=== PATIENT | female | born 1960 | race Caucasian/White ===

== ENCOUNTER 2016-02-21 15:34 | Emergency (ER) | payer OTHER ==
[2016-02-21 16:38] VITALS: RESP 20
--- NOTE | 2016-02-21 18:15 | ED ---
Female Urogenital HPI - General Chief complaint: Urogenital Stated complaint: Lower Abd Pain Source: patient, RN notes reviewed Mode of arrival: ambulatory Limitations: no limitations - History of Present Illness Initial comments: Patient is a 55-year-old female presenting to the emergency department with 2 days of vaginal discharge and burning with urination. Patient reports that she asked that the discharge is a yellow color and she also has had vaginal itching. Patient is concerned that she has a possible yeast infection or possibly sexually transmitted infection. Denies any recent antibiotic use. Patient warts that she has unprotected sex with however he has been unfaithful to her on her in the past. Patient reports that she also has some lower pelvic pain which she rates a 4 out of 10. Patient with the pain is intermittent will occasionally bother her. Patient reports she has a past medical history of hypertension and irritable bowel syndrome. She states that she has had diarrhea lately however she states that this is a chronic condition. Patient denies any recent fever, chills, shortness of breath, chest pain, back pain, nausea vomiting, numbness or tingling, dysuria or hematuria, constipation or diarrhea, headaches or visual changes, or any other current symptoms - Related Data Home Medications Medication Instructions Recorded Confirmed Propranolol LA [Inderal LA] 80 mg PO DAILY 08/03/15 02/21/16 Previous Rx's Medication Instructions Recorded Phenazopyridine HCl [Pyridium] 100 mg PO TID #6 tab 02/21/16 Sulfamethox-Tmp 800-160Mg [Bactrim 1 tab PO Q12HR #6 tab 02/21/16 DS 800-160 mg] Allergies Allergy/AdvReac Type Severity Reaction Status Date / Time No Known Allergies Allergy Verified 02/21/16 18:21 Review of Systems ROS Statement: Those systems with pertinent positive or pertinent negative responses have been documented in the HPI. ROS Other: All systems not noted in ROS Statement are negative. Past Medical History Additional Past Medical History / Comment(s): mitral valve prolapse History of Any Multi-Drug Resistant Organisms: None Reported Past Surgical History: No Surgical Hx Reported Past Psychological History: No Psychological Hx Reported Smoking Status: Never smoker Past Alcohol Use History: None Reported Past Drug Use History: None Reported General Exam - General Exam Comments Initial Comments: Patient is a well-appearing 55-year-old female. She does not appear to be in any acute distress. Limitations: no limitations General appearance: alert, in no apparent distress Head exam: Present: atraumatic, normocephalic, normal inspection Eye exam: Present: normal appearance, PERRL, EOMI. Absent: scleral icterus, conjunctival injection, periorbital swelling ENT exam: Present: normal exam, normal oropharynx, mucous membranes moist Neck exam: Present: normal inspection. Absent: tenderness, meningismus, lymphadenopathy Respiratory exam: Present: normal lung sounds bilaterally. Absent: respiratory distress, wheezes, rales, rhonchi, stridor Cardiovascular Exam: Present: regular rate, normal rhythm, normal heart sounds. Absent: systolic murmur, diastolic murmur, rubs, gallop, clicks GI/Abdominal exam: Present: soft, normal bowel sounds. Absent: distended, tenderness, guarding, rebound, rigid External exam: Present: normal external exam Speculum exam: Present: normal speculum exam. Absent: erythema, vaginal discharge, cervical discharge, vaginal bleeding By manual exam: Present: normal by manual exam. Absent: cervical motion tenderness, adnexal tenderness, adnexal mass, uterine enlargement Extremities exam: Present: normal inspection, full ROM, normal capillary refill. Absent: tenderness, pedal edema, joint swelling, calf tenderness Back exam: Present: normal inspection Neurological exam: Present: alert, oriented X3, CN II-XII intact Psychiatric exam: Present: normal affect, normal mood Skin exam: Present: warm, dry, intact, normal color. Absent: rash Course Vital Signs 02/21/16 16:37 Temperature 98 F Pulse Rate 65 Respiratory 20 Rate Blood Pressure 127/58 O2 Sat by Pulse 97 Oximetry Medical Decision Making - Medical Decision Making Patient's 55-year-old female presents emergency room with 2 days of dysuria, vaginal itching. Patient's urinalysis is positive for nitrates white blood cells and leukocyte esterase. Urine culture sent. Patient will be discharged with a diagnosis of urinary tract infection. Vaginal exam was negative for any discharge or signs of sexual transmitted infection. Patient will be placed on Bactrim DS as well as given a prescription for peridium for the next 2 days. Patient understands treatment plan will comply. Return parameters were discussed. I did advise patient she is follow-up with a [employer] IM[employer]OVEMENT ENGINEER for annual visits. Patient was also given a referral for a obgyn. - Lab Data Lab Results 02/21/16 Range/Units 18:14 Urine Color Light Yellow Urine Appearance Clear (Clear) Urine pH 5.0 (5.0-8.0) Ur Specific [place] 1.011 (1.001-1.035) Urine Protein Negative (Negative) Urine Glucose (UA) Negative (Negative) Urine Ketones Negative (Negative) Urine Blood Negative (Negative) Urine Nitrate Positive H (Negative) Urine Bilirubin Negative (Negative) Urine Urobilinogen <2.0 (<2.0) mg/dL Ur Leukocyte Esterase Moderate H (Negative) Urine RBC <1 (0-5) /hpf Urine WBC 6 H (0-5) /hpf Urine Bacteria Occasional H (None) /hpf Hyaline Casts 2 (0-2) /lpf Urine Mucus Rare H (None) /hpf Disposition Clinical Impression: Urinary tract infection Disposition: HOME SELF-CARE Condition: Good Instructions: Urinary Tract Infection in Women (ED) Additional Instructions: Patient instructed to rest, remain hydrated and the antibiotic prescription as well as take the analgesic. Patient is to follow-up with her primary care provider. Also it is important to follow-up with maintenance Pap smears and mammograms by regular doctor. Patient will be given her for further [employer] IM[employer]OVEMENT ENGINEER for setting up annual appointments. Prescriptions: Phenazopyridine HCl [Pyridium] 100 mg PO TID #6 tab Sulfamethox-Tmp 800-160Mg [Bactrim DS 800-160 mg] 1 tab PO Q12HR #6 tab Referrals: Parker Gonzalez Jr, DO [Primary Care Provider] - 1-2 days Radha Gorman MD [STAFF PHYSICIAN] - 03/12/16 Time of Disposition: 18:33
[2016-02-21 18:21] LABS: Appearance,Urine Clear (Clear); Bilirubin,Urine Negative (Negative); Glucose,Urine (UA) Negative (Negative); Ketones,Urine Negative (Negative); Protein,Urine Negative (Negative); Specific Gravity,Urine 1.011 (1.001-1.035)
[2016-02-21 18:22] LABS: Bacteria,Urine Occasional /hpf; Leukocyte Esterase,Urine Moderate (Negative); Mucus,Urine Rare /hpf; Nitrite,Urine Positive (Negative); Particle Count 12879; RBC,Urine <1 /hpf (0-5); UA Billing (MACRO vs. MICRO) MICRO; Urobilinogen,Urine <2.0 mg/dL (<2.0); WBC,Urine 6 /hpf (0-5)
[2016-02-21 18:57] VITALS: BP 122/66; PULSE 78; TEMP 97.8
== END 2016-02-21 18:57 | disposition home or self-care (01) ==
LOC: EC 15:34
DX: N39.0 Urinary tract infection, site not specified (principal); I34.1 Nonrheumatic mitral (valve) prolapse; Z79.899 Other long term (current) drug therapy
CPT/HCPCS: 81001; 87070; 87077; 87086; 87186; 87205; 87491; 87591; 87808; 99283

== ENCOUNTER 2017-01-04 06:00 | Emergency (ER) | payer OTHER ==
[2017-01-04 06:15] VITALS: BP 117/58; PULSE 61; RESP 16; TEMP 97.2
--- NOTE | 2017-01-04 06:31 | ED ---
General Adult HPI - General Chief complaint: Urogenital Stated complaint: Female Urogenital Time Seen by Provider: 01/04/17 06:22 Source: patient, RN notes reviewed, old records reviewed Mode of arrival: ambulatory Limitations: no limitations - History of Present Illness Initial comments: This is a 56-year-old [id number] female bowel pain, pain with burning burning with urination and decreased urination. No fevers no diarrhea no nausea or vomiting. Patient feels like she has urinary tract infection - Related Data Home Medications Medication Instructions Recorded Confirmed Propranolol LA [Inderal LA] 80 mg PO DAILY 08/03/15 02/21/16 Previous Rx's Medication Instructions Recorded Phenazopyridine HCl [Pyridium] 100 mg PO TID #6 tab 02/21/16 Sulfamethox-Tmp 800-160Mg [Bactrim 1 tab PO Q12HR #6 tab 02/21/16 DS 800-160 mg] Allergies Allergy/AdvReac Type Severity Reaction Status Date / Time No Known Allergies Allergy Verified 01/04/17 06:15 Review of Systems ROS Statement: Those systems with pertinent positive or pertinent negative responses have been documented in the HPI. ROS Other: All systems not noted in ROS Statement are negative. Past Medical History Past Medical History: Mitral Valve Prolapse (MVP) Additional Past Medical History / Comment(s): mitral valve prolapse History of Any Multi-Drug Resistant Organisms: None Reported Past Surgical History: No Surgical Hx Reported Past Psychological History: No Psychological Hx Reported Smoking Status: Never smoker Past Alcohol Use History: None Reported Past Drug Use History: None Reported General Exam Limitations: no limitations General appearance: alert, in no apparent distress Head exam: Present: atraumatic, normocephalic, normal inspection Eye exam: Present: normal appearance, PERRL, EOMI. Absent: scleral icterus, conjunctival injection, periorbital swelling ENT exam: Present: normal exam, mucous membranes moist Neck exam: Present: normal inspection. Absent: tenderness, meningismus, lymphadenopathy Respiratory exam: Present: normal lung sounds bilaterally. Absent: respiratory distress, wheezes, rales, rhonchi, stridor Cardiovascular Exam: Present: regular rate, normal rhythm, normal heart sounds. Absent: systolic murmur, diastolic murmur, rubs, gallop, clicks GI/Abdominal exam: Present: soft, normal bowel sounds. Absent: distended, tenderness, guarding, rebound, rigid Extremities exam: Present: normal inspection, full ROM, normal capillary refill. Absent: tenderness, pedal edema, joint swelling, calf tenderness Back exam: Present: normal inspection Neurological exam: Present: alert, oriented X3, CN II-XII intact Psychiatric exam: Present: normal affect, normal mood Skin exam: Present: warm, dry, intact, normal color. Absent: rash Course Vital Signs 01/04/17 06:11 Temperature 97.2 F L Pulse Rate 61 Respiratory 16 Rate Blood Pressure 117/58 O2 Sat by Pulse 99 Oximetry - Reevaluation(s) Reevaluation #1: 01/04/17 06:31 No distress Medical Decision Making - Medical Decision Making 56 female to ER with abdominal pain dysuria, positive UTI. Patient can be discharged home Disposition Clinical Impression: Urinary tract infection Disposition: HOME SELF-CARE Condition: Good Instructions: Urinary Tract Infection in Women (ED) Referrals: Parker Gonzalez Jr, DO [Primary Care Provider] - 1-2 days
[2017-01-04 07:05] LABS: Appearance,Urine Cloudy (Clear); Bilirubin,Urine Negative (Negative); Glucose,Urine (UA) Negative (Negative); Ketones,Urine Negative (Negative); Leukocyte Esterase,Urine Large (Negative); Mucus,Urine Occasional /hpf; Nitrite,Urine Negative (Negative); Particle Count 3454; Protein,Urine Trace (Negative); RBC,Urine 12 /hpf (0-5); Specific Gravity,Urine 1.019 (1.001-1.035); UA Billing (MACRO vs. MICRO) MICRO; Urobilinogen,Urine <2.0 mg/dL (<2.0); WBC,Urine >182 /hpf (0-5)
== END 2017-01-04 07:47 | disposition home or self-care (01) ==
LOC: EC 06:00
DX: N39.0 Urinary tract infection, site not specified (principal); I34.1 Nonrheumatic mitral (valve) prolapse; Z79.899 Other long term (current) drug therapy
CPT/HCPCS: 81001; 87077; 87086; 87186; 99283

== ENCOUNTER 2017-01-15 06:00 | Emergency (ER) | payer OTHER ==
[2017-01-15 06:08] VITALS: PULSE 82; RESP 20; TEMP 98.3
[2017-01-15 06:09] VITALS: BP 120/57
--- NOTE | 2017-01-15 06:23 | ED ---
General Adult HPI - General Chief complaint: Extremity Injury, Upper Stated complaint: IHS-fall,female Time Seen by Provider: 01/15/17 06:14 Source: patient, RN notes reviewed Mode of arrival: ambulatory Limitations: no limitations - History of Present Illness Initial comments: This is a 56-year-old female who presents with 2 complaints one is left forearm pain after a fall she sustained 2 days ago at work. She states her hurts from her distal radius ulna proximal to the elbow no other injury distal or proximal to the complaint is that of dysuria urinary urgency with decreased urinary output and suprapubic pain. She was recently treated for UTI with Macrobid. The symptoms got better now that her returning. She denies any overt fever she has had some chills no sweats. No cough or phlegm production she states she does have a slight sore throat now. She had any head neck or back pain. - Related Data Home Medications Medication Instructions Recorded Confirmed Propranolol LA [Inderal LA] 80 mg PO DAILY 08/03/15 01/15/17 Previous Rx's Medication Instructions Recorded Fluconazole [Diflucan] 150 mg PO ONCE #1 tab 01/04/17 Nitrofurantoin Monohyd/M-Cryst 100 mg PO Q12HR #14 cap 01/04/17 [Macrobid] Cephalexin [Keflex] 500 mg PO Q6HR #40 cap 01/15/17 Ibuprofen [Motrin] 600 mg PO Q6HR PRN #20 tab 01/15/17 Phenazopyridine [Pyridium] 200 mg PO TID #15 tablet 01/15/17 Allergies Allergy/AdvReac Type Severity Reaction Status Date / Time No Known Allergies Allergy Verified 01/15/17 06:08 Review of Systems ROS Statement: Those systems with pertinent positive or pertinent negative responses have been documented in the HPI. ROS Other: All systems not noted in ROS Statement are negative. Past Medical History Past Medical History: Mitral Valve Prolapse (MVP) Additional Past Medical History / Comment(s): mitral valve prolapse History of Any Multi-Drug Resistant Organisms: None Reported Past Surgical History: No Surgical Hx Reported Past Psychological History: No Psychological Hx Reported Smoking Status: Never smoker Past Alcohol Use History: None Reported Past Drug Use History: None Reported General Exam - General Exam Comments Initial Comments: This is a well-developed well-nourished awake alert oriented 3 female Limitations: no limitations General appearance: alert, in no apparent distress Head exam: Present: atraumatic, normocephalic, normal inspection Eye exam: Present: normal appearance, PERRL, EOMI. Absent: scleral icterus, conjunctival injection, periorbital swelling ENT exam: Present: normal exam, mucous membranes moist Neck exam: Present: normal inspection. Absent: tenderness, meningismus, lymphadenopathy Respiratory exam: Present: normal lung sounds bilaterally. Absent: respiratory distress, wheezes, rales, rhonchi, stridor Cardiovascular Exam: Present: regular rate, normal rhythm, normal heart sounds. Absent: systolic murmur, diastolic murmur, rubs, gallop, clicks GI/Abdominal exam: Present: soft, normal bowel sounds. Absent: distended, tenderness, guarding, rebound, rigid Extremities exam: Present: normal inspection, full ROM, tenderness (Tennis palpation over the distal radius no ulnar tenderness mild soft tissue tenderness to the mid forearm no tenderness of the elbow no tenderness proximal or distal no sensorimotor vascular deficits noted.), normal capillary refill. Absent: pedal edema, joint swelling, calf tenderness Back exam: Present: normal inspection Neurological exam: Present: alert, oriented X3, CN II-XII intact Psychiatric exam: Present: normal affect, normal mood Skin exam: Present: warm, dry, intact, normal color. Absent: rash Course Vital Signs 01/15/17 06:04 Temperature 98.3 F Pulse Rate 82 Respiratory 20 Rate Blood Pressure 120/57 O2 Sat by Pulse 97 Oximetry Medical Decision Making - Medical Decision Making I did discuss findings with the patient initially placed on a different antibiotic also Pyridium increase oral fluids follow-up when necessary urine cultures are pending - Lab Data Lab Results 01/15/17 Range/Units 06:22 Urine Color Light Red Urine Appearance Turbid H (Clear) Urine pH 5.5 (5.0-8.0) Ur Specific [place] 1.016 (1.001-1.035) Urine Protein 1+ H (Negative) Urine Glucose (UA) Negative (Negative) Urine Ketones Trace H (Negative) Urine Blood Large H (Negative) Urine Nitrite Negative (Negative) Urine Bilirubin Negative (Negative) Urine Urobilinogen <2.0 (<2.0) mg/dL Ur Leukocyte Esterase Large H (Negative) Urine RBC >182 H (0-5) /hpf Urine WBC >182 H (0-5) /hpf Urine WBC Clumps Many H (None) /hpf Ur Squamous Epith Cells 1 (0-4) /hpf Urine Mucus Occasional H (None) /hpf - Radiology Data Radiology results: report reviewed (Did review the imaging and there is no evidence of acute fracture.), image reviewed Disposition Clinical Impression: Cystitis, Urinary tract infection, Strain of forearm, left Disposition: HOME SELF-CARE Condition: Good Instructions: Musculoskeletal Pain (ED), Urinary Tract Infection in Women (ED) Prescriptions: Cephalexin [Keflex] 500 mg PO Q6HR #40 cap Ibuprofen [Motrin] 600 mg PO Q6HR PRN #20 tab PRN Reason: Pain Phenazopyridine [Pyridium] 200 mg PO TID #15 tablet Referrals: Parker Gonzalez Jr, DO [Primary Care Provider] - 1-2 days
[2017-01-15 06:37] LABS: Appearance,Urine Turbid (Clear); Bilirubin,Urine Negative (Negative); Glucose,Urine (UA) Negative (Negative); Ketones,Urine Trace (Negative); Leukocyte Esterase,Urine Large (Negative); Mucus,Urine Occasional /hpf; Nitrite,Urine Negative (Negative); PH, Urine 5.5 (5.0-8.0); Particle Count 6489; Protein,Urine 1+ (Negative); RBC,Urine >182 /hpf (0-5); Specific Gravity,Urine 1.016 (1.001-1.035); Squamous Epithelial Cell,Urine 1 /hpf (0-4); UA Billing (MACRO vs. MICRO) MICRO; Urobilinogen,Urine <2.0 mg/dL (<2.0); WBC,Urine >182 /hpf (0-5)
--- NOTE | 2017-01-15 07:17 | XR ---
EXAM: XR Left Forearm, 2 Views CLINICAL HISTORY: Reason: Pain TECHNIQUE: Frontal and lateral views of the left forearm. COMPARISON: No relevant prior studies available. FINDINGS: Bones/joints: Unremarkable. No acute fracture. No dislocation. Soft tissues: Unremarkable. IMPRESSION: No acute radiographic findings.
== END 2017-01-15 06:54 | disposition home or self-care (01) ==
LOC: EC 06:00
DX: S56.912A Strain of unspecified muscles, fascia and tendons at forearm level, left arm, initial encounter (principal); N30.90 Cystitis, unspecified without hematuria; Z79.899 Other long term (current) drug therapy; W01.0XXA Fall on same level from slipping, tripping and stumbling without subsequent striking against object, initial encounter; Y99.0 Civilian activity done for income or pay
CPT/HCPCS: 81001; 87077; 87086; 87186; 99283

== ENCOUNTER 2017-05-16 07:42 | Emergency (ER) | payer SELFPAY ==
[2017-05-16 07:56] VITALS: RESP 18
[2017-05-16 08:30] LABS: Appearance,Urine Cloudy (Clear); Bacteria,Urine Occasional /hpf; Bilirubin,Urine Negative (Negative); Blood,Urine Small (Negative); Color,Urine Yellow; Glucose,Urine (UA) Negative (Negative); Ketones,Urine Negative (Negative); Leukocyte Esterase,Urine Large (Negative); Mucus,Urine Rare /hpf; Nitrite,Urine Negative (Negative); Protein,Urine Trace (Negative); RBC,Urine 10 /hpf (0-5); Specific Gravity,Urine 1.015 (1.001-1.035); Squamous Epithelial Cell,Urine <1 /hpf (0-4); Urobilinogen,Urine <2.0 mg/dL (<2.0); WBC,Urine >182 /hpf (0-5)
[2017-05-16] MEDS ORDERED: CEPHALEXIN 500MG STARTER PACK 4 CAP BTL PO STA (08:39)
--- NOTE | 2017-05-16 08:41 | ED ---
Female Urogenital HPI - General Chief complaint: Urogenital Stated complaint: Poss UTI Time Seen by Provider: 05/16/17 08:08 Source: patient, RN notes reviewed, old records reviewed Mode of arrival: ambulatory Limitations: no limitations - History of Present Illness Initial comments: This patient is a 57-year-old female presents with dysuria for the past three days. She think she may have a UTI. She reports that she had a UTI in the past and it felt similar to this. Frequency and painful urination. She denies any vaginal discharge. She reports in the past keflex worked well for her. she denies fevers, but reports Chill. She denies any back pain nausea or vomiting. - Related Data Home Medications Medication Instructions Recorded Confirmed Propranolol LA [Inderal LA] 80 mg PO DAILY@1130 08/03/15 05/16/17 Previous Rx's Medication Instructions Recorded Cephalexin [Keflex] 500 mg PO Q6HR #40 cap 05/16/17 Phenazopyridine [Pyridium] 100 mg PO TID #9 tablet 05/16/17 Allergies Allergy/AdvReac Type Severity Reaction Status Date / Time No Known Allergies Allergy Verified 05/16/17 08:26 Review of Systems ROS Statement: Those systems with pertinent positive or pertinent negative responses have been documented in the HPI. ROS Other: All systems not noted in ROS Statement are negative. Past Medical History Past Medical History: Mitral Valve Prolapse (MVP), Thyroid Disorder Additional Past Medical History / Comment(s): mitral valve prolapse History of Any Multi-Drug Resistant Organisms: None Reported Past Surgical History: No Surgical Hx Reported Past Psychological History: No Psychological Hx Reported Smoking Status: Never smoker Past Alcohol Use History: None Reported Past Drug Use History: None Reported General Exam - General Exam Comments Initial Comments: This is a well appearing 57 year old female, no distress. Limitations: no limitations General appearance: alert, in no apparent distress Head exam: Present: atraumatic Eye exam: Present: normal appearance, PERRL, EOMI. Absent: scleral icterus, conjunctival injection, periorbital swelling Neck exam: Present: normal inspection. Absent: tenderness, meningismus, lymphadenopathy Respiratory exam: Present: normal lung sounds bilaterally. Absent: respiratory distress, wheezes, rales, rhonchi, stridor Cardiovascular Exam: Present: regular rate, normal rhythm, normal heart sounds. Absent: systolic murmur, diastolic murmur, rubs, gallop, clicks GI/Abdominal exam: Present: soft, tenderness (suprapubic), normal bowel sounds. Absent: distended, guarding, rebound, rigid Psychiatric exam: Present: normal affect, normal mood Skin exam: Present: warm, dry, intact, normal color. Absent: rash Course Vital Signs 05/16/17 05/16/17 07:54 09:00 Temperature 97.9 F 97.3 F L Pulse Rate 69 57 L Respiratory 18 18 Rate Blood Pressure 111/80 132/63 O2 Sat by Pulse 98 97 Oximetry Medical Decision Making - Medical Decision Making 57 year old female with CC of dysuria and urinary frequescy for 3 days. Urinanalysis is positive for infection with over 182 white blood cells. Many bacteria. urine culture obtained. Will start the patient on Keflex and pyridium. Discussed appropriate follow-up. All questions answered and return parameters were discussed. - Lab Data Lab Results 05/16/17 Range/Units 08:00 Urine Color Yellow Urine Appearance Cloudy H (Clear) Urine pH 5.0 (5.0-8.0) Ur Specific [place] 1.015 (1.001-1.035) Urine Protein Trace H (Negative) Urine Glucose (UA) Negative (Negative) Urine Ketones Negative (Negative) Urine Blood Small H (Negative) Urine Nitrite Negative (Negative) Urine Bilirubin Negative (Negative) Urine Urobilinogen <2.0 (<2.0) mg/dL Ur Leukocyte Esterase Large H (Negative) Urine RBC 10 H (0-5) /hpf Urine WBC >182 H (0-5) /hpf Urine WBC Clumps Few H (None) /hpf Ur Squamous Epith Cells <1 (0-4) /hpf Urine Bacteria Occasional H (None) /hpf Urine Mucus Rare H (None) /hpf Disposition Clinical Impression: UTI (urinary tract infection) Disposition: HOME SELF-CARE Condition: Good Instructions: Urinary Tract Infection in Children (ED), Urinary Tract Infection in Women (ED) Additional Instructions: Follow-up with primary care provider to repeat urinalysis in the next 2 days. Take antibiotics as prescribed. Return to the emergency department if any alarming signs or symptoms occur. Prescriptions: Cephalexin [Keflex] 500 mg PO Q6HR #40 cap Phenazopyridine [Pyridium] 100 mg PO TID #9 tablet Referrals: Parker Gonzalez Jr, [Primary Care Provider] - 1-2 days Time of Disposition: 08:40
[2017-05-16 09:01] VITALS: BP 132/63; PULSE 57; TEMP 97.3
--- NOTE | 2017-05-17 04:39 | CDI ---
Documentation Clarification OP Dear SPENCER Lagunas: Please do addendum to ED report for HPI , Physical exam and MDM. Thank you, Modesta Syed Ship Construction Teacher If you have any question, Please contact certified coding specialist at [phone] [facility]
== END 2017-05-16 09:00 | disposition home or self-care (01) ==
LOC: EC 07:42
DX: N39.0 Urinary tract infection, site not specified (principal); Z79.899 Other long term (current) drug therapy
CPT/HCPCS: 81001; 99284

== ENCOUNTER 2017-06-24 03:15 | Emergency (ER) | payer OTHER ==
--- NOTE | 2017-06-24 04:36 | XR ---
EXAM: XR Chest, 2 Views CLINICAL HISTORY: ITS.REASON XR Reason: cough TECHNIQUE: Frontal and lateral views of the chest. COMPARISON: No relevant prior studies available. FINDINGS: Lungs: Mild basilar opacities may represent atelectasis. Pleural space: Questionable trace left pleural effusion. No pneumothorax. Heart: Unremarkable. Mediastinum: Unremarkable. Bones/joints: Unremarkable. IMPRESSION: 1. Questionable trace left pleural effusion. 2. Mild basilar opacities may represent atelectasis.
--- NOTE | 2017-06-24 04:56 | ED ---
URI HPI - General Chief Complaint: Upper Respiratory Infection Stated Complaint: congestion,diff breathing Time Seen by Provider: 06/24/17 03:24 Source: family Mode of arrival: ambulatory Limitations: no limitations - History of Present Illness Initial Comments: This patient is a 57-year-old woman who presents to be evaluated for constellation of symptoms starting approximately week ago. She states she was initially having some nasal congestion, rhinorrhea, and a little bit of cough. This continued for number of days and then over the past 2-3 days she has started to have chest congestion and the cough began to have some yellow-green sputum. Today she states she is having tightness across her chest admission to the cough and sputum. Patient denies dyspnea. MD Complaint: cough -: days(s) Severity: mild Consistency: constant Improves With: nothing Worsens With: nothing Associated Symptoms: rhinorrhea, nasal congestion, hoarseness - Related Data Home Medications Medication Instructions Recorded Confirmed Propranolol LA [Inderal LA] 80 mg PO DAILY@1130 08/03/15 06/24/17 Previous Rx's Medication Instructions Recorded Azithromycin [Zithromax Z-pack] 250 mg PO DIRECTED #6 tab 06/24/17 Allergies Allergy/AdvReac Type Severity Reaction Status Date / Time No Known Allergies Allergy Verified 05/16/17 08:26 Review of Systems ROS Statement: Those systems with pertinent positive or pertinent negative responses have been documented in the HPI. ROS Other: All systems not noted in ROS Statement are negative. Constitutional: Denies: fever, chills, weakness ENT: Reports: congestion. Denies: throat pain Respiratory: Reports: as per HPI, cough. Denies: dyspnea, wheezes, hemoptysis Cardiovascular: Reports: as per HPI, chest pain. Denies: palpitations, dyspnea on exertion, orthopnea, edema, syncope Gastrointestinal: Denies: abdominal pain, nausea, vomiting Musculoskeletal: Denies: back pain Skin: Denies: rash Neurological: Denies: headache, weakness, numbness Past Medical History Past Medical History: Mitral Valve Prolapse (MVP), Thyroid Disorder Additional Past Medical History / Comment(s): mitral valve prolapse History of Any Multi-Drug Resistant Organisms: None Reported Past Surgical History: No Surgical Hx Reported Past Psychological History: No Psychological Hx Reported Smoking Status: Never smoker Past Alcohol Use History: None Reported Past Drug Use History: None Reported General Exam Limitations: no limitations General appearance: alert, in no apparent distress Head exam: Present: atraumatic, normocephalic Eye exam: Present: normal appearance. Absent: scleral icterus, conjunctival injection ENT exam: Present: normal oropharynx Neck exam: Present: normal inspection Respiratory exam: Present: normal lung sounds bilaterally, wheezes (There is mild end expiratory wheeze.), rhonchi, chest wall tenderness. Absent: respiratory distress, rales, stridor, accessory muscle use, decreased breath sounds, prolonged expiratory Cardiovascular Exam: Present: regular rate, normal rhythm, normal heart sounds. Absent: systolic murmur, diastolic murmur, rubs, gallop GI/Abdominal exam: Present: soft. Absent: distended, tenderness, guarding, rebound, mass, pulsatile mass Extremities exam: Present: normal inspection, normal capillary refill. Absent: pedal edema, calf tenderness Back exam: Present: normal inspection. Absent: CVA tenderness (R), CVA tenderness (L) Neurological exam: Present: alert Skin exam: Present: warm, dry, intact, normal color. Absent: rash Course Vital Signs 06/24/17 06/24/17 03:18 03:47 Temperature 99.8 F H Pulse Rate 71 Respiratory 20 22 Rate Blood Pressure 121/60 O2 Sat by Pulse 95 Oximetry Disposition Clinical Impression: Bronchitis, Pneumonia Disposition: HOME SELF-CARE Condition: Fair Instructions: Pneumonia (ED) Prescriptions: Azithromycin [Zithromax Z-pack] 250 mg PO DIRECTED #6 tab Is patient prescribed a controlled substance at d/c from ED?: No Referrals: Parker Gonzalez Jr, [Primary Care Provider] - 1-2 days
[2017-06-24] MEDS ORDERED: AZITHROMYCIN 500 MG TAB PO STA (05:00)
[2017-06-24 05:18] VITALS: BP 113/54; PULSE 98; RESP 18; TEMP 98.9
== END 2017-06-24 05:18 | disposition home or self-care (01) ==
LOC: EC 03:15
DX: J18.9 Pneumonia, unspecified organism (principal); J40 Bronchitis, not specified as acute or chronic; Z79.899 Other long term (current) drug therapy
CPT/HCPCS: 71046; 99283

== ENCOUNTER 2017-08-13 14:15 | Emergency (ER) | payer OTHER ==
[2017-08-13 14:26] VITALS: RESP 16
--- NOTE | 2017-08-13 14:45 | ED ---
Female Urogenital HPI - General Chief complaint: Urogenital Stated complaint: poss UTI Time Seen by Provider: 08/13/17 14:28 Source: patient Mode of arrival: ambulatory Limitations: no limitations - History of Present Illness Initial comments: 57-year-old female patient presents the emergency department today for complaints of suprapubic abdominal pressure low back pain. States she believes she has a urinary tract infection. States that she does get urinary tract infections often. States that she has a constant urge to urinate. She denies any dysuria or hematuria. Patient states that she has also been having increased vaginal discharge over the last 3 days. States it is "green" in color. States that she does have a significant other who does have a history of cheating and she is concerned she may have an STD. She denies any fevers or chills. Denies any nausea or vomiting. States she has had diarrhea over the last couple of days. Denies any hematochezia or melena with this. Patient denies any recent rash, shortness breath, chest pain, numbness, tingling, dizziness, weakness, headache, visual changes, or any other complaints. - Related Data Home Medications Medication Instructions Recorded Confirmed Propranolol LA [Inderal LA] 80 mg PO DAILY@1130 08/03/15 08/13/17 Allergies Allergy/AdvReac Type Severity Reaction Status Date / Time No Known Allergies Allergy Verified 08/13/17 16:02 Review of Systems ROS Statement: Those systems with pertinent positive or pertinent negative responses have been documented in the HPI. ROS Other: All systems not noted in ROS Statement are negative. Past Medical History Past Medical History: Mitral Valve Prolapse (MVP), Thyroid Disorder Additional Past Medical History / Comment(s): mitral valve prolapse History of Any Multi-Drug Resistant Organisms: None Reported Past Surgical History: No Surgical Hx Reported Past Psychological History: No Psychological Hx Reported Smoking Status: Never smoker Past Alcohol Use History: None Reported Past Drug Use History: None Reported General Exam Limitations: no limitations General appearance: alert, in no apparent distress, other (This is a well- developed, well-nourished adult female patient in no acute distress. Vital signs upon presentation are temperature 98.2F, pulse 55, respirations 16, blood pressure 135/75, pulse ox 99% on room air.) Eye exam: Present: normal appearance, PERRL, EOMI. Absent: scleral icterus, conjunctival injection, periorbital swelling ENT exam: Present: normal exam, normal oropharynx, mucous membranes moist Respiratory exam: Present: normal lung sounds bilaterally. Absent: respiratory distress, wheezes, rales, rhonchi, stridor Cardiovascular Exam: Present: regular rate, normal rhythm, normal heart sounds. Absent: systolic murmur, diastolic murmur, rubs, gallop, clicks GI/Abdominal exam: Present: soft, normal bowel sounds. Absent: distended, tenderness, guarding, rebound, rigid External exam: Present: normal external exam Speculum exam: Present: vaginal discharge (Clear, copious, and greenish.). Absent: erythema, vaginal bleeding, foreign body By manual exam: Present: normal by manual exam Back exam: Present: normal inspection. Absent: CVA tenderness (R), CVA tenderness (L) Neurological exam: Present: alert, oriented X3, CN II-XII intact Psychiatric exam: Present: normal affect, normal mood Skin exam: Present: warm, dry, intact, normal color. Absent: rash Course Vital Signs 08/13/17 08/13/17 14:23 16:42 Temperature 98.2 F 97.3 F L Pulse Rate 55 L 60 Respiratory 16 16 Rate Blood Pressure 135/75 165/73 O2 Sat by Pulse 99 96 Oximetry Medical Decision Making - Medical Decision Making 57-year-old female patient presented to the emergency department today for suprapubic pressure and abnormal vaginal discharge. Oral examination was performed, patient had no abdominal tenderness, no CVA tenderness. Urinalysis was obtained and showed no acute infection. Did perform pelvic examination which did reveal a thin watery discharge with a greenish tinge. There is no cervical motion tenderness or adnexal tenderness. Patient will be treated for possible STDs with Flagyl, azithromycin, and ceftriaxone. Urine and vaginal cultures have been sent. Patient is instructed to follow up with the primary care physician as well as her medical laboratory technologist for further evaluation. Return parameters discussed in detail. She verbalizes understanding and agreed with this plan. - Lab Data Lab Results 08/13/17 08/13/17 Range/Units 15:03 15:03 Urine Color Light Yellow Urine Appearance Clear (Clear) Urine pH 5.0 (5.0-8.0) Ur Specific [place] 1.006 (1.001-1.035) Urine Protein Negative (Negative) Urine Glucose (UA) Negative (Negative) Urine Ketones Negative (Negative) Urine Blood Negative (Negative) Urine Nitrite Negative (Negative) Urine Bilirubin Negative (Negative) Urine Urobilinogen <2.0 (<2.0) mg/dL Ur Leukocyte Esterase Small H (Negative) Urine WBC 4 (0-5) /hpf Urine Mucus Rare H (None) /hpf Trichomonas Ag (Rapid) Negative (Negative) Disposition Clinical Impression: Sexually transmitted infection Disposition: HOME SELF-CARE Condition: Good Instructions: Sexually Transmitted Diseases (ED) Additional Instructions: Call in 3 days to obtain test results. Follow-up with your primary care physician and medical laboratory technologist as soon as possible. Return here immediately for any new, worsening, or concerning symptoms. Is patient prescribed a controlled substance at d/c from ED?: No Referrals: Parker Gonzalez Jr, DO [Primary Care Provider] - 1-2 days Time of Disposition: 16:05
[2017-08-13 15:16] LABS: Appearance,Urine Clear (Clear); Bilirubin,Urine Negative (Negative); Blood,Urine Negative (Negative); Color,Urine Light Yellow; Glucose,Urine (UA) Negative (Negative); Ketones,Urine Negative (Negative); Leukocyte Esterase,Urine Small (Negative); Mucus,Urine Rare /hpf; Nitrite,Urine Negative (Negative); Protein,Urine Negative (Negative); Specific Gravity,Urine 1.006 (1.001-1.035); Urobilinogen,Urine <2.0 mg/dL (<2.0); WBC,Urine 4 /hpf (0-5)
[2017-08-13] MEDS ORDERED: cefTRIAXone 250 MG VIAL IM STA (16:03)
[2017-08-13] MEDS ORDERED: metroNIDAZOLE 500 MG TAB PO STA (16:03)
[2017-08-13] MEDS ORDERED: AZITHROMYCIN 500 MG TAB PO STA (16:03)
[2017-08-13 16:43] VITALS: BP 165/73; PULSE 60; TEMP 97.3
[2017-08-14 15:49] LABS: C. trachomatis,PCR Negative (Neg,Equiv); Chlamydia trachomatis Source Cervix; N. gonorrhoeae,PCR Negative (Neg,Equiv); Neisseria Source Cervix
== END 2017-08-13 16:43 | disposition home or self-care (01) ==
LOC: EC 14:15
DX: A64 Unspecified sexually transmitted disease (principal); I34.1 Nonrheumatic mitral (valve) prolapse; Z79.899 Other long term (current) drug therapy
CPT/HCPCS: 81001; 87808; 87491; 87591; 87070; 87086; 99284; 96372; J0696; 87205

== ENCOUNTER 2017-09-25 04:42 | Emergency (ER) | payer SELFPAY ==
[2017-09-25 04:50] VITALS: BP 147/82; PULSE 67; RESP 18; TEMP 98.4
--- NOTE | 2017-09-25 05:15 | ED ---
General Adult HPI - General Chief complaint: Urogenital Stated complaint: poss UTI Source: patient Mode of arrival: ambulatory Limitations: no limitations - History of Present Illness Initial comments: Dictation was produced using [employer] dictation software. please excuse any grammatical, word or spelling errors. Chief Complaint: 57-year-old female past nuchal history much about prolapse of the disease presents with pelvic pain and dysuria. History of Present Illness: Patient is a 57-year-old female with a history of urinary tract infection presents with concerns of UTI. Patient states she's been having some pelvic pain with some burning on urination. Patient did feel some chills however denies any fevers. She has taken Keflex with much success in the past. The ROS documented in this emergency department record has been reviewed and confirmed by me. Those systems with pertinent positive or negative responses have been documented in the HPI. All other systems are other negative and/or noncontributory. - Related Data Home Medications Medication Instructions Recorded Confirmed Propranolol LA [Inderal LA] 80 mg PO DAILY@1130 08/03/15 09/25/17 Previous Rx's Medication Instructions Recorded Cephalexin [Keflex] 500 mg PO Q8HR 10 Days #30 cap 09/25/17 Allergies Allergy/AdvReac Type Severity Reaction Status Date / Time No Known Allergies Allergy Verified 08/13/17 16:02 Review of Systems ROS Statement: Those systems with pertinent positive or pertinent negative responses have been documented in the HPI. ROS Other: All systems not noted in ROS Statement are negative. Past Medical History Past Medical History: Mitral Valve Prolapse (MVP), Thyroid Disorder Additional Past Medical History / Comment(s): mitral valve prolapse History of Any Multi-Drug Resistant Organisms: None Reported Past Surgical History: No Surgical Hx Reported Past Psychological History: No Psychological Hx Reported Smoking Status: Never smoker Past Alcohol Use History: None Reported Past Drug Use History: None Reported General Exam - General Exam Comments Initial Comments: PHYSICAL EXAM: General Impression: Alert and oriented x3, not in acute distress HEENT: Normocephalic atraumatic, extra-ocular movements intact, pupils equal and reactive to light bilaterally, mucous membranes moist. Cardiovascular: Heart regular rate and rhythm, S1&S2 audible, no murmurs, rubs or gallops Chest: Lungs clear to auscultation bilaterally, no rhonchi, no wheeze, no rales Abdomen: Bowel sounds present, abdomen soft, non-tender, non-distended, no organomegaly Musculoskeletal: Pulses present and equal in all extremities, no peripheral edema, no CVA tenderness Motor: Power 5/5 bilaterally, no focal deficits noted Neurological: CN II-XII grossly intact, no focal motor or sensory deficits noted Skin: Intact with no visualized rashes Psych: Normal affect and mood Limitations: no limitations Course Vital Signs 09/25/17 04:48 Temperature 98.4 F Pulse Rate 67 Respiratory 18 Rate Blood Pressure 147/82 O2 Sat by Pulse 98 Oximetry Medical Decision Making - Medical Decision Making ED course: 25-year-old female with urinary complaints. Signs upon arrival shows findings within acceptable limits. No fevers. Urinalysis obtained. There is 59 white blood cells with occasional bacteria and positive nitrites. This likely represents gram-negative infection likely due to E. coli. Microbiology reviewed from previous urine cultures. There appears to be sensitivity to cephalosporins. Patient has been on Keflex in the past with good result. Given patient's symptoms of flank pain there is some suspicion that her symptoms reflect pyelonephritis. Patient given ten-day course of Keflex. Told to follow-up with primary care physician upon discharge - Lab Data Lab Results 09/25/17 Range/Units 04:55 Urine Color Light Yellow Urine Appearance Cloudy H (Clear) Urine pH 5.0 (5.0-8.0) Ur Specific [place] 1.011 (1.001-1.035) Urine Protein Negative (Negative) Urine Glucose (UA) Negative (Negative) Urine Ketones Negative (Negative) Urine Blood Moderate H (Negative) Urine Nitrite Positive H (Negative) Urine Bilirubin Negative (Negative) Urine Urobilinogen <2.0 (<2.0) mg/dL Ur Leukocyte Esterase Large H (Negative) Urine RBC 24 H (0-5) /hpf Urine WBC 59 H (0-5) /hpf Urine WBC Clumps Rare H (None) /hpf Ur Squamous Epith Cells <1 (0-4) /hpf Urine Bacteria Occasional H (None) /hpf Urine Mucus Rare H (None) /hpf Disposition Clinical Impression: Pyelonephritis Disposition: HOME SELF-CARE Condition: Fair Instructions: Urinary Tract Infection in Women (ED) Prescriptions: Cephalexin [Keflex] 500 mg PO Q8HR 10 Days #30 cap Is patient prescribed a controlled substance at d/c from ED?: No Referrals: Parker Gonzalez Jr, [Primary Care Provider] - 1-2 days Time of Disposition: 05:44
[2017-09-25 05:38] LABS: Appearance,Urine Cloudy (Clear); Bacteria,Urine Occasional /hpf; Bilirubin,Urine Negative (Negative); Blood,Urine Moderate (Negative); Color,Urine Light Yellow; Glucose,Urine (UA) Negative (Negative); Ketones,Urine Negative (Negative); Leukocyte Esterase,Urine Large (Negative); Mucus,Urine Rare /hpf; Nitrite,Urine Positive (Negative); Protein,Urine Negative (Negative); RBC,Urine 24 /hpf (0-5); Specific Gravity,Urine 1.011 (1.001-1.035); Squamous Epithelial Cell,Urine <1 /hpf (0-4); Urobilinogen,Urine <2.0 mg/dL (<2.0); WBC,Urine 59 /hpf (0-5)
== END 2017-09-25 05:47 | disposition home or self-care (01) ==
LOC: EC 04:42
DX: N12 Tubulo-interstitial nephritis, not specified as acute or chronic (principal); I34.1 Nonrheumatic mitral (valve) prolapse; Z79.899 Other long term (current) drug therapy
CPT/HCPCS: 81001; 99284

== ENCOUNTER 2017-10-14 14:34 | Emergency (ER) | payer OTHER ==
[2017-10-14 14:45] VITALS: BP 106/53; PULSE 60; RESP 18; TEMP 98.4
[2017-10-14 15:21] LABS: Appearance,Urine Clear (Clear); Bilirubin,Urine Negative (Negative); Blood,Urine Negative (Negative); Color,Urine Yellow; Glucose,Urine (UA) Negative (Negative); Hyaline Casts,Urine 5 /lpf (0-2); Ketones,Urine Negative (Negative); Leukocyte Esterase,Urine Trace (Negative); Mucus,Urine Moderate /hpf; Nitrite,Urine Negative (Negative); Protein,Urine 1+ (Negative); RBC,Urine 4 /hpf (0-5); Specific Gravity,Urine 1.024 (1.001-1.035); Squamous Epithelial Cell,Urine <1 /hpf (0-4); WBC,Urine 7 /hpf (0-5)
[2017-10-14] MEDS ORDERED: cefTRIAXone 1,000 MG VIAL (IM USE) IM STA (15:25)
--- NOTE | 2017-10-14 15:28 | ED ---
Female Urogenital HPI - General Chief complaint: Urogenital Stated complaint: Poss UTI Time Seen by Provider: 10/14/17 15:01 Source: patient Mode of arrival: ambulatory Limitations: no limitations - History of Present Illness Initial comments: This a 57-year-old female with repetitive urinary tract infections presents today for chief complaint of, "I have another UTI". Pt states that she was seen here at [facility] ER for a UTI on the 25 of September, she was prescribed a 10 day course of keflex. She stated she did miss many doses of the keflex due to being busy at work and therefore the prescription lasted her until this past Saturday. She stated that this helped with the symptoms almost immediately once she had started the keflex, however for the past few days she has been experiencing urgency and frequency as well as suprapubic tenderness. Pt admits to chills. Pt denies fever, flank pain, nausea, vomiting, diarrhea, night sweats or any other associated symptoms. Remainder of ROS (-) upon arrival VS stable pt afebrile, HR 60. - Related Data Home Medications Medication Instructions Recorded Confirmed Propranolol LA [Inderal LA] 80 mg PO DAILY@1130 08/03/15 09/25/17 Previous Rx's Medication Instructions Recorded Cephalexin [Keflex] 500 mg PO Q8HR 10 Days #30 cap 09/25/17 Sulfamethox-Tmp 800-160Mg [Bactrim 1 tab PO Q12HR 7 Days #14 tab 10/14/17 DS 800-160 mg] Allergies Allergy/AdvReac Type Severity Reaction Status Date / Time No Known Allergies Allergy Verified 10/14/17 14:45 Review of Systems ROS Statement: Those systems with pertinent positive or pertinent negative responses have been documented in the HPI. ROS Other: All systems not noted in ROS Statement are negative. Constitutional: Reports: chills. Denies: fever, night sweats Respiratory: Denies: cough, dyspnea Cardiovascular: Denies: chest pain, palpitations Gastrointestinal: Denies: abdominal pain, nausea, vomiting, diarrhea, constipation Genitourinary: Reports: urgency, dysuria, frequency. Denies: hematuria, discharge Skin: Denies: rash Neurological: Denies: weakness, confusion Past Medical History Past Medical History: Mitral Valve Prolapse (MVP), Thyroid Disorder Additional Past Medical History / Comment(s): mitral valve prolapse History of Any Multi-Drug Resistant Organisms: None Reported Past Surgical History: No Surgical Hx Reported Past Psychological History: No Psychological Hx Reported Smoking Status: Never smoker Past Alcohol Use History: None Reported Past Drug Use History: None Reported General Exam - General Exam Comments Initial Comments: General: The patient is awake and alert, in no distress, and does not appear acutely ill. Eye: Pupils are equal, round and reactive to light, extra-ocular movements are intact. No nystagmus. There is normal conjunctiva bilaterally. No signs of icterus. Cardiovascular: There is a regular rate and rhythm. No murmur, rub or gallop is appreciated. Respiratory: Lungs are clear to auscultation, respirations are non-labored, breath sounds are equal. No wheezes, stridor, rales, or rhonchi. Gastrointestinal: Soft, non-distended, non-tender abdomen without masses or organomegaly noted. There is no rebound or guarding present. No CVA tenderness. Bowel sounds are unremarkable.Pt has discomfort to palpation over the superior bladder margin. Musculoskeletal: Normal ROM, no tenderness. Strength 5/5. Sensation intact. Pulses equal bilaterally 2+. Neurological: A&O x 3. CN II-XII intact, There are no obvious motor or sensory deficits. Coordination appears grossly intact. Speech is normal. Skin: Skin is warm and dry and no rashes or lesions are noted. Psychiatric: Cooperative, appropriate mood & affect, normal judgment. Limitations: no limitations Course Vital Signs 10/14/17 14:41 Temperature 98.4 F Pulse Rate 60 Respiratory 18 Rate Blood Pressure 106/53 O2 Sat by Pulse 98 Oximetry Medical Decision Making - Medical Decision Making 57yo female with PMH of recurrent UTIs who recently completed course of keflex with returning urinary symptoms. Pt VS stabe. Pt does admit to having experienced an episode of low back pain however denies constant flank pain, this concerning for possible pylonephritis. UA revealed trace esterase, 7 white blood cells, +1 protein, 3.0 urobiliogen. Case discussed in detail with Dr. Carcamo. Pt refused ceftriaxone IM injection as ordered because of previous n/ vomiting induced by injection. Pt given RX for bactrim DS q12h x7 days for UTI, bactrim was chosen given failure with treatment on keflex. Urine was sent for culture. Pt refused STD testing today stating she has been with the same partner for 4 years and has not experienced any abnormal vaginal discharge. Pt was instructed to return to the emergency department for any change or worsening symptoms including fever, chills, flank pain. Pt agreed and verbalized understanding, i answered all questions to the best of my ability. Pt d/c in stable condition. - Lab Data Lab Results 10/14/17 Range/Units 15:10 Urine Color Yellow Urine Appearance Clear (Clear) Urine pH 5.0 (5.0-8.0) Ur Specific [place] 1.024 (1.001-1.035) Urine Protein 1+ H (Negative) Urine Glucose (UA) Negative (Negative) Urine Ketones Negative (Negative) Urine Blood Negative (Negative) Urine Nitrite Negative (Negative) Urine Bilirubin Negative (Negative) Urine Urobilinogen 3.0 (<2.0) mg/dL Ur Leukocyte Esterase Trace H (Negative) Urine RBC 4 (0-5) /hpf Urine WBC 7 H (0-5) /hpf Ur Squamous Epith Cells <1 (0-4) /hpf Hyaline Casts 5 H (0-2) /lpf Urine Mucus Moderate H (None) /hpf Disposition Clinical Impression: UTI (urinary tract infection) Disposition: HOME SELF-CARE Condition: Good Instructions: Urinary Tract Infection in Women (ED) Additional Instructions: Please use medication as discussed- MUST COMPLETE FULL COURSE REGARDLESS OF SYMPTOM RELIEF. Please follow-up with family doctor in the next 2 days of symptoms have not improved. Please return to emergency room if the symptoms increase or worsen or for any other concerns, as discussed Prescriptions: Sulfamethox-Tmp 800-160Mg [Bactrim DS 800-160 mg] 1 tab PO Q12HR 7 Days #14 tab Is patient prescribed a controlled substance at d/c from ED?: No Referrals: Parker Gonzalez Jr, [Primary Care Provider] - 1-2 days Time of Disposition: 15:28
== END 2017-10-14 16:00 | disposition home or self-care (01) ==
LOC: EC 14:34
DX: N39.0 Urinary tract infection, site not specified (principal); Z79.899 Other long term (current) drug therapy; Z53.29 Procedure and treatment not carried out because of patient's decision for other reasons
CPT/HCPCS: 81001; 87086; 99283

== ENCOUNTER 2018-04-09 07:18 | Emergency (ER) | payer MEDICAID ==
--- NOTE | 2018-04-09 08:20 | ED ---
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 She believes she became very anxious as well as happen. She felt her heart rate. Past. She feels back to normal at this time she believes is secondary to anxiety this point. She has she would like to go back to work. She denies a fevers chills nausea vomiting sweats or other symptoms at this time she has had previous episodes of this. She denies any chest pain focal weakness or other symptoms. No other modifying factors at this time MD Complaint: dizziness, lightheadedness - Related Data Home Medications Medication Instructions Recorded Confirmed Propranolol LA [Inderal LA] 80 mg PO DAILY@1130 08/03/15 04/09/18 Allergies Allergy/AdvReac Type Severity Reaction Status Date / Time No Known Allergies Allergy Verified 04/09/18 07:36 Review of Systems ROS Statement: Those systems with pertinent positive or pertinent negative responses have been documented in the HPI. ROS Other: All systems not noted in ROS Statement are negative. Past Medical History Past Medical History: Mitral Valve Prolapse (MVP), Thyroid Disorder Additional Past Medical History / Comment(s): mitral valve prolapse History of Any Multi-Drug Resistant Organisms: None Reported Past Surgical History: No Surgical Hx Reported Past Psychological History: No Psychological Hx Reported Smoking Status: Never smoker Past Alcohol Use History: None Reported Past Drug Use History: None Reported General Exam - General Exam Comments Initial Comments: This is a well-developed well-nourished awake alert oriented 3 female Limitations: no limitations General appearance: alert, in no apparent distress Head exam: Present: atraumatic, normocephalic, normal inspection Eye exam: Present: normal appearance, PERRL, EOMI. Absent: scleral icterus, conjunctival injection, periorbital swelling ENT exam: Present: normal exam, mucous membranes moist Neck exam: Present: normal inspection, full ROM, other (No stridor JVD or bruits ). Absent: tenderness, meningismus, lymphadenopathy Respiratory exam: Present: normal lung sounds bilaterally. Absent: respiratory distress, wheezes, rales, rhonchi, stridor Cardiovascular Exam: Present: regular rate, normal rhythm, normal heart sounds. Absent: systolic murmur, diastolic murmur, rubs, gallop, clicks GI/Abdominal exam: Present: soft, normal bowel sounds. Absent: distended, tenderness, guarding, rebound, rigid, bruit, pulsatile mass Extremities exam: Present: normal inspection, full ROM, normal capillary refill. Absent: tenderness, pedal edema, joint swelling, calf tenderness Back exam: Present: normal inspection Neurological exam: Present: alert, oriented X3, CN II-XII intact Psychiatric exam: Present: normal affect, normal mood Skin exam: Present: warm, dry, intact, normal color. Absent: rash Course Vital Signs 04/09/18 07:24 Temperature 98.4 F Pulse Rate 76 Respiratory 18 Rate Blood Pressure 132/57 O2 Sat by Pulse 98 Oximetry EKG Findings - EKG Results: EKG: interpreted by HILDA, sinus rhythm (Sinus rhythm a 66. Interval 150 to QRS duration 76 QT since QTC 386/44 evidence of by atrial enlargement no acute ST-T wave changes.) Medical Decision Making - Medical Decision Making Patient is feeling well at this time and does request that she go back to work today. Should be no issues with that did recommend she increase oral fluids as she does states she drinks a lot of fluid during the day. The presentation consistent with a vasovagal episode. - Lab Data Result diagrams: 04/09/18 08:00 04/09/18 08:00 Lab Results 04/09/18 04/09/18 04/09/18 Range/Units 08:00 08:00 08:00 WBC 4.4 (3.8-10.6) k/uL RBC 4.68 (3.80-5.40) m/uL Hgb 13.8 (11.4-16.0) gm/dL Hct 42.7 (34.0-46.0) % MCV 91.3 (80.0-100.0) fL MCH 29.5 (25.0-35.0) pg MCHC 32.3 (31.0-37.0) g/dL RDW 12.9 (11.5-15.5) % Plt Count 197 (150-450) k/uL Neutrophils % 63 % Lymphocytes % 24 % Monocytes % 7 % Eosinophils % 3 % Basophils % 1 % Neutrophils # 2.8 (1.3-7.7) k/uL Lymphocytes # 1.1 (1.0-4.8) k/uL Monocytes # 0.3 (0-1.0) k/uL Eosinophils # 0.1 (0-0.7) k/uL Basophils # 0.0 (0-0.2) k/uL Sodium 142 (137-145) mmol/L Potassium 4.7 (3.5-5.1) mmol/L Chloride 103 (98-107) mmol/L Carbon Dioxide 30 (22-30) mmol/L Anion Gap 9 mmol/L BUN 22 H (7-17) mg/dL Creatinine 0.80 (0.52-1.04) mg/dL Est GFR (CKD-EPI)AfAm >90 (>60 ml/min/1.73 sqM) Est GFR (CKD-EPI)NonAf 82 (>60 ml/min/1.73 sqM) Glucose 87 (74-99) mg/dL Calcium 9.8 (8.4-10.2) mg/dL Magnesium 1.9 (1.6-2.3) mg/dL Total Bilirubin 1.5 H (0.2-1.3) mg/dL AST 29 (14-36) U/L ALT 34 (9-52) U/L Alkaline Phosphatase 48 (38-126) U/L Total Creatine Kinase 79 (30-135) U/L CK-MB (CK-2) 1.0 (0.0-2.4) ng/mL CK-MB (CK-2) Rel Index 1.3 Troponin I <0.012 (0.000-0.034) ng/mL Total Protein 7.7 (6.3-8.2) g/dL Albumin 4.6 (3.5-5.0) g/dL Urine Color Urine Appearance (Clear) Urine pH (5.0-8.0) Ur Specific [place] (1.001-1.035) Urine Protein (Negative) Urine Glucose (UA) (Negative) Urine Ketones (Negative) Urine Blood (Negative) Urine Nitrite (Negative) Urine Bilirubin (Negative) Urine Urobilinogen (<2.0) mg/dL Ur Leukocyte Esterase (Negative) 04/09/18 Range/Units 09:10 WBC (3.8-10.6) k/uL RBC (3.80-5.40) m/uL Hgb (11.4-16.0) gm/dL Hct (34.0-46.0) % MCV (80.0-100.0) fL MCH (25.0-35.0) pg MCHC (31.0-37.0) g/dL RDW (11.5-15.5) % Plt Count (150-450) k/uL Neutrophils % % Lymphocytes % % Monocytes % % Eosinophils % % Basophils % % Neutrophils # (1.3-7.7) k/uL Lymphocytes # (1.0-4.8) k/uL Monocytes # (0-1.0) k/uL Eosinophils # (0-0.7) k/uL Basophils # (0-0.2) k/uL Sodium (137-145) mmol/L Potassium (3.5-5.1) mmol/L Chloride (98-107) mmol/L Carbon Dioxide (22-30) mmol/L Anion Gap mmol/L BUN (7-17) mg/dL Creatinine (0.52-1.04) mg/dL Est GFR (CKD-EPI)AfAm (>60 ml/min/1.73 sqM) Est GFR (CKD-EPI)NonAf (>60 ml/min/1.73 sqM) Glucose (74-99) mg/dL Calcium (8.4-10.2) mg/dL Magnesium (1.6-2.3) mg/dL Total Bilirubin (0.2-1.3) mg/dL AST (14-36) U/L ALT (9-52) U/L Alkaline Phosphatase (38-126) U/L Total Creatine Kinase (30-135) U/L CK-MB (CK-2) (0.0-2.4) ng/mL CK-MB (CK-2) Rel Index Troponin I (0.000-0.034) ng/mL Total Protein (6.3-8.2) g/dL Albumin (3.5-5.0) g/dL Urine Color Light Yellow Urine Appearance Clear (Clear) Urine pH 6.0 (5.0-8.0) Ur Specific [place] 1.005 (1.001-1.035) Urine Protein Negative (Negative) Urine Glucose (UA) Negative (Negative) Urine Ketones Negative (Negative) Urine Blood Negative (Negative) Urine Nitrite Negative (Negative) Urine Bilirubin Negative (Negative) Urine Urobilinogen <2.0 (<2.0) mg/dL Ur Leukocyte Esterase Negative (Negative) - Radiology Data Radiology results: report reviewed (I did review the imaging and report no acute findings.), image reviewed Disposition Clinical Impression: Vasovagal episode, Dehydration, Near syncope Disposition: HOME SELF-CARE Condition: Good Instructions (If sedation given, give patient instructions): Dehydration (ED), Near Syncope (ED) Is patient prescribed a controlled substance at d/c from ED?: No Referrals: Pakrer Gonzalez Jr, [Primary Care Provider] - 1-2 days
--- NOTE | 2018-04-09 08:27 | XR ---
EXAMINATION TYPE: XR chest 2V DATE OF EXAM: 04/09/2018 COMPARISON: 06/24/2017 HISTORY: Dizziness, history of mitral valve prolapse. TECHNIQUE: Frontal and lateral views of the chest are obtained. FINDINGS: There is no focal air space opacity, pleural effusion, or pneumothorax seen. The cardiac silhouette size is within normal limits. The osseous structures are intact. Again the hazy appearan ce of the right heart border is likely from a pectus excavatum deformity. Pulmonary hyperinflation li kuldeep relates to the degree of inspiration rather than underlying emphysema as there is no flattening of the diaphragms on the lateral view nor biapical lucency. Correlation with pulmonary function tests could be performed for confirmation. IMPRESSION: No acute cardiopulmonary process.
[2018-04-09 08:34] LABS: Basophils % (A) 1 %; Eosinophils # (A) 0.1 k/uL (0-0.7); Eosinophils % (A) 3 %; HCT 42.7 % (34.0-46.0); HGB 13.8 gm/dL (11.4-16.0); Lymphocytes # (A) 1.1 k/uL (1.0-4.8); Lymphocytes % (A) 24 %; MCH 29.5 pg (25.0-35.0); MCHC 32.3 g/dL (31.0-37.0); MCV 91.3 fL (80.0-100.0); Mean Platelet Volume 8.4; Monocytes # (A) 0.3 k/uL (0-1.0); Monocytes % (A) 7 %; Neutrophils # (A) 2.8 k/uL (1.3-7.7); Neutrophils % (A) 63 %; Platelet Count 197 k/uL (150-450); RBC 4.68 m/uL (3.80-5.40); RDW 12.9 % (11.5-15.5); WBC 4.4 k/uL (3.8-10.6)
[2018-04-09 08:43] LABS: ALT 34 U/L (9-52); AST 29 U/L (14-36); Albumin 4.6 g/dL (3.5-5.0); Alkaline Phosphatase 48 U/L (38-126); Anion Gap 9 mmol/L; Blood Urea Nitrogen 22 mg/dL (7-17); Calcium 9.8 mg/dL (8.4-10.2); Carbon Dioxide 30 mmol/L (22-30); Chloride 103 mmol/L (98-107); Glucose 87 mg/dL (74-99); Magnesium 1.9 mg/dL (1.6-2.3); Potassium 4.7 mmol/L (3.5-5.1); Sodium 142 mmol/L (137-145); Total Bilirubin 1.5 mg/dL (0.2-1.3); Total Protein 7.7 g/dL (6.3-8.2)
[2018-04-09 08:55] LABS: Creatine Kinase 79 U/L (30-135)
[2018-04-09 09:08] LABS: Troponin I <0.012 ng/mL (0.000-0.034)
[2018-04-09 09:33] LABS: Appearance,Urine Clear (Clear); Bilirubin,Urine Negative (Negative); Blood,Urine Negative (Negative); Color,Urine Light Yellow; Glucose,Urine (UA) Negative (Negative); Ketones,Urine Negative (Negative); Leukocyte Esterase,Urine Negative (Negative); Nitrite,Urine Negative (Negative); Protein,Urine Negative (Negative); Specific Gravity,Urine 1.005 (1.001-1.035); Urobilinogen,Urine <2.0 mg/dL (<2.0)
[2018-04-09 09:54] VITALS: BP 131/76; PULSE 55; RESP 19; TEMP 97.6
== END 2018-04-09 09:58 | disposition home or self-care (01) ==
LOC: EC 07:18
DX: R55 Syncope and collapse (principal); E86.0 Dehydration; R20.0 Anesthesia of skin; R20.2 Paresthesia of skin; R42 Dizziness and giddiness; I34.1 Nonrheumatic mitral (valve) prolapse; Z79.899 Other long term (current) drug therapy
CPT/HCPCS: 36415; 71046; 80053; 81003; 82550; 82553; 83735; 84484; 85025; 93005; 99284

== ENCOUNTER 2018-07-11 15:17 | Emergency (ER) | payer MEDICAID, OTHER ==
[2018-07-11 15:37] VITALS: PULSE 62
--- NOTE | 2018-07-11 16:30 | ED ---
Back Pain HPI - General Chief Complaint: Back Pain/Injury Stated Complaint: [facility], back pain Time Seen by Provider: 07/11/18 15:43 Source: patient Limitations: no limitations - History of Present Illness Initial Comments: Patient is a 58-year-old female presenting to emergency Department with back pain. Patient reports that she was attempting to remove sheets from a bed while she was bending over. Patient reports she developed acute, throbbing pain in the right thoracic region. Patient reports the pain does not radiate anywhere. Patient reports the pain is exacerbated with left and right rotation. Patient denies chest pain, chest tightness, shortness of breath or chest palpitations. Patient denies headaches or dizziness or lightheadedness, nausea, vomiting. Patient reports coming to the ER for reassurance as she suspects it is muscular. Patient reports paraspinal tenderness located between T10 and T12. Patient denies taking any medication to alleviate the pain. - Related Data Home Medications Medication Instructions Recorded Confirmed Propranolol LA [Inderal LA] 80 mg PO DAILY@1130 08/03/15 04/09/18 Allergies Allergy/AdvReac Type Severity Reaction Status Date / Time No Known Allergies Allergy Verified 04/09/18 07:36 Review of Systems ROS Statement: Those systems with pertinent positive or pertinent negative responses have been documented in the HPI. ROS Other: All systems not noted in ROS Statement are negative. Past Medical History Past Medical History: Mitral Valve Prolapse (MVP), Thyroid Disorder Additional Past Medical History / Comment(s): mitral valve prolapse History of Any Multi-Drug Resistant Organisms: None Reported Past Surgical History: No Surgical Hx Reported Past Psychological History: No Psychological Hx Reported Smoking Status: Never smoker Past Alcohol Use History: None Reported Past Drug Use History: None Reported General Exam Limitations: no limitations General appearance: alert, in no apparent distress Head exam: Present: atraumatic, normocephalic, normal inspection Eye exam: Present: normal appearance Neck exam: Present: normal inspection, full ROM. Absent: tenderness, lymphadenopathy Respiratory exam: Present: normal lung sounds bilaterally Cardiovascular Exam: Present: regular rate GI/Abdominal exam: Present: soft. Absent: distended, tenderness Extremities exam: Present: normal inspection, full ROM Back exam: Present: paraspinal tenderness (Right thoracic). Absent: full ROM (Limited due to pain), CVA tenderness (R), muscle spasm, vertebral tenderness, rash noted Neurological exam: Present: alert, oriented X3 Psychiatric exam: Present: normal affect, normal mood Skin exam: Present: warm, intact, normal color Course Vital Signs 07/11/18 15:35 Temperature 98.3 F Pulse Rate 62 Respiratory 18 Rate Blood Pressure 107/64 O2 Sat by Pulse 98 Oximetry Medical Decision Making - Medical Decision Making Patient is a 58-year-old female presenting to emergency Department for back pain. Based on physical examination suspect the pain due to muscular in nature and not vertebral. I gave reassurance to the patient and advised her to use a Hypaque in the areas of tenderness and avoid a lot of movement. Patient advised to alternate between Tylenol and ibuprofen for pain control. Patient advised to follow up with primary care. Patient advised to return to the emergency department if symptoms worsen. I offered to prescribe Flexeril to the patient but she declined. Case discussed with physician. Disposition Clinical Impression: Mechanical back pain Disposition: HOME SELF-CARE Condition: Stable Instructions (If sedation given, give patient instructions): Acute Low Back Pain (ED) Additional Instructions: Please use heating pad in area of soreness. Alternate between Tylenol and ibuprofen for pain control. Please follow primary care. Please return to emergency department if symptoms worsen. Is patient prescribed a controlled substance at d/c from ED?: No Referrals: Parker Gonzalez Jr, [Primary Care Provider] - 1-2 days Time of Disposition: 16:44
[2018-07-11 17:08] VITALS: BP 115/70; RESP 16; TEMP 98.1
== END 2018-07-11 17:08 | disposition home or self-care (01) ==
LOC: EC 15:17
DX: M54.6 Pain in thoracic spine (principal); Z79.899 Other long term (current) drug therapy; X50.1XXA Overexertion from prolonged static or awkward postures, initial encounter; Y93.89 Activity, other specified; Y92.69 Other specified industrial and construction area as the place of occurrence of the external cause; Y99.0 Civilian activity done for income or pay
CPT/HCPCS: 99283

== ENCOUNTER → 2018-07-16 | Outpatient (CLI) | payer OTHER ==
--- NOTE | 2018-07-16 15:41 | XR ---
EXAMINATION TYPE: XR thoracic spine complete DATE OF EXAM: 07/16/2018 CLINICAL HISTORY: pain TECHNIQUE: Frontal, lateral, and swimmer's view of thoracic spine are obtained. COMPARISON: None. FINDINGS: Thoracic spine show satisfactory alignment without evidence of acute fracture or dislocatio n. Vertebral body heights are preserved. Disc spaces are well preserved. Visualized ribs are unrem arkable. IMPRESSION: No acute fracture or dislocation is seen in the thoracic spine. ICD 10 NO FRACTURE, INIT IAL EVALUATION
== END | disposition home or self-care (01) ==
LOC: RADXRMAIN 15:01
PROVIDERS: ATTEND Emergency Medicine
DX: M54.6 Pain in thoracic spine (principal)
CPT/HCPCS: 72072

== ENCOUNTER 2018-08-09 18:14 | Emergency (ER) | payer MEDICAID ==
[2018-08-09 18:29] VITALS: BP 119/56; PULSE 61; RESP 16; TEMP 98.6
--- NOTE | 2018-08-09 19:00 | ED ---
Female Urogenital HPI - General Chief complaint: Urogenital Stated complaint: poss UTI Time Seen by Provider: 08/09/18 18:31 Source: patient Mode of arrival: ambulatory Limitations: no limitations - History of Present Illness Initial comments: Patient presents with a chief complaint of dysuria. Patient states visiting on for about 3 days. She states that she was recently treated for sinus infection and then developed a yeast infection. She states of these infection is cleared up but now she developed urinary symptoms. She denies any fever, chills, nausea or vomiting. She states that she does not have urinary frequency though she does admit to some vaginal discharge. She says that she is not sexually active, she does not have any concerns for sexually transmitted infections. - Related Data Home Medications Medication Instructions Recorded Confirmed Propranolol LA [Inderal LA] 80 mg PO DAILY@1130 08/03/15 08/09/18 Previous Rx's Medication Instructions Recorded Cephalexin [Keflex] 500 mg PO Q6HR #28 cap 08/09/18 Fluconazole [Diflucan] 150 mg PO ONCE #1 tab 08/09/18 Allergies Allergy/AdvReac Type Severity Reaction Status Date / Time No Known Allergies Allergy Verified 08/09/18 18:29 Review of Systems ROS Statement: Those systems with pertinent positive or pertinent negative responses have been documented in the HPI. ROS Other: All systems not noted in ROS Statement are negative. Genitourinary: Reports: dysuria Past Medical History Past Medical History: Mitral Valve Prolapse (MVP), Thyroid Disorder Additional Past Medical History / Comment(s): mitral valve prolapse History of Any Multi-Drug Resistant Organisms: None Reported Past Surgical History: No Surgical Hx Reported Past Psychological History: No Psychological Hx Reported Smoking Status: Never smoker Past Alcohol Use History: None Reported Past Drug Use History: None Reported General Exam Limitations: no limitations General appearance: alert, in no apparent distress Head exam: Present: atraumatic, normocephalic Eye exam: Present: normal appearance ENT exam: Present: normal exam Neck exam: Present: normal inspection Respiratory exam: Present: normal lung sounds bilaterally. Absent: respiratory distress Cardiovascular Exam: Present: regular rate, normal rhythm GI/Abdominal exam: Present: soft. Absent: distended, tenderness Rectal exam: Present: deferred External exam: Present: other (Patient offered pelvic exam but declines) Extremities exam: Present: normal inspection Back exam: Present: normal inspection. Absent: CVA tenderness (R), CVA tenderness (L) Neurological exam: Present: alert, oriented X3 Psychiatric exam: Present: normal affect, normal mood Skin exam: Present: warm, dry, intact Course Vital Signs 08/09/18 18:27 Temperature 98.6 F Pulse Rate 61 Respiratory 16 Rate Blood Pressure 119/56 O2 Sat by Pulse 99 Oximetry Medical Decision Making - Medical Decision Making Patient presents with a chief complaint of dysuria and vaginal discharge. On initial evaluation, vitals are stable, patient is in no acute distress. Patient offered pelvic exam but declines at this time. Urinalysis sent, patient will reassess need for pelvic exam pending urinalysis results. Lab evaluation shows evidence of urinary tract infection. At this time, patient stable for discharge. She is prescribed Keflex for 7 days. She was instructed to follow up with primary care in 1-2 days, return to ED if symptoms worsen or change. - Lab Data Lab Results 08/09/18 Range/Units 19:05 Urine Color Colorless Urine Appearance Clear (Clear) Urine pH 5.0 (5.0-8.0) Ur Specific Only 1.006 (1.001-1.035) Urine Protein Negative (Negative) Urine Glucose (UA) Negative (Negative) Urine Ketones Negative (Negative) Urine Blood Small H (Negative) Urine Nitrite Negative (Negative) Urine Bilirubin Negative (Negative) Urine Urobilinogen <2.0 (<2.0) mg/dL Ur Leukocyte Esterase Large H (Negative) Urine WBC 141 H (0-5) /hpf Urine WBC Clumps Occasional H (None) /hpf Disposition Clinical Impression: Urinary tract infection Disposition: HOME SELF-CARE Condition: Good Instructions (If sedation given, give patient instructions): Urinary Tract Infection in Women (ED) Is patient prescribed a controlled substance at d/c from ED?: No Referrals: Parker Gonzalez Jr, [Primary Care Provider] - 1-2 days
[2018-08-09 19:32] LABS: Appearance,Urine Clear (Clear); Bilirubin,Urine Negative (Negative); Blood,Urine Small (Negative); Color,Urine Colorless; Glucose,Urine (UA) Negative (Negative); Ketones,Urine Negative (Negative); Leukocyte Esterase,Urine Large (Negative); Nitrite,Urine Negative (Negative); Protein,Urine Negative (Negative); Specific Gravity,Urine 1.006 (1.001-1.035); Urobilinogen,Urine <2.0 mg/dL (<2.0)
== END 2018-08-09 20:13 | disposition home or self-care (01) ==
LOC: EC 18:14
DX: N39.0 Urinary tract infection, site not specified (principal); Z79.899 Other long term (current) drug therapy
CPT/HCPCS: 81001; 87086; 99283

== ENCOUNTER 2018-08-10 12:41 | Observation (INO) | payer MEDICAID ==
[2018-08-10] MEDS ORDERED: ASPIRIN 81 MG PO STA (13:26)
--- NOTE | 2018-08-10 13:31 | ED ---
General Adult HPI - General Chief complaint: Arrhythmia/Palpitations Stated complaint: palpitations, weakness Time Seen by Provider: 08/10/18 13:16 Source: patient Mode of arrival: ambulatory Limitations: no limitations - History of Present Illness Initial comments: 58-year-old female presents with the chief complaint palpitations. I saw her yesterday and diagnosed her with urinary tract infection, she was started on Bactrim but did not fill the prescription yet. 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 She has a history of heart palpitations in the past and is currently on 80 mg of propranolol daily. She states that when this happens to her nose she can take a couple deep breaths and it goes away. It was persistent today. The patient cannot identify any other inciting incidences. There are no other relieving or leading factors. The patient states that she felt mildly short of breath at the time but did not have any pain in the chest. She denies nausea or vomiting. She has a signi ficant family history of cardiac pathology including WPW and her son, coronary artery disease in her brother who just had a triple bypass surgery at the age of 59, and coronary artery disease in her father. She states that she was never formally diagnosed with any arrhythmias but was told that she had an intermittent fast heart rate and mitral regurgitation. She has never had a stress test. She does not have a case consultant. - Related Data Home Medications Medication Instructions Recorded Confirmed Propranolol LA [Inderal LA] 80 mg PO DAILY@1130 08/03/15 08/10/18 Previous Rx's Medication Instructions Recorded Cephalexin [Keflex] 500 mg PO Q6HR #28 cap 08/09/18 Fluconazole [Diflucan] 150 mg PO ONCE #1 tab 08/09/18 Allergies Allergy/AdvReac Type Severity Reaction Status Date / Time No Known Allergies Allergy Verified 08/10/18 13:28 Review of Systems ROS Statement: Those systems with pertinent positive or pertinent negative responses have been documented in the HPI. ROS Other: All systems not noted in ROS Statement are negative. Cardiovascular: Reports: palpitations Past Medical History Past Medical History: Mitral Valve Prolapse (MVP), Thyroid Disorder Additional Past Medical History / Comment(s): mitral valve prolapse History of Any Multi-Drug Resistant Organisms: None Reported Past Surgical History: No Surgical Hx Reported Past Psychological History: No Psychological Hx Reported Smoking Status: Never smoker Past Alcohol Use History: None Reported Past Drug Use History: None Reported General Exam Limitations: no limitations General appearance: alert, in no apparent distress Head exam: Present: atraumatic, normocephalic Eye exam: Present: normal appearance ENT exam: Present: normal exam Neck exam: Present: normal inspection Respiratory exam: Present: normal lung sounds bilaterally. Absent: respiratory distress, wheezes Cardiovascular Exam: Present: regular rate, normal rhythm GI/Abdominal exam: Present: soft. 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 On initial evaluation, vital signs show tachycardia but otherwise stable. Patient is in no acute distress. EKG performed at 1308 shows accelerated junctional rhythm with a rate of 126 bpm, there are ST depressions in leads [address] segment inversions in V3 through V6. these are new Findings when compared to previous EKG performed on 04/09/2018. Patient given aspirin, she'll be evaluated basic labs including cardiac enzymes and chest x-ray. On the monitor, she has a heart rate of 75, will repeat EKG. I would prefer to admit the patient for further cardiac evaluation. 2:53 PM Lab evaluation the patient is unremarkable. Repeat EKG shows sinus rhythm with a rate of 72 bpm, sinus within normal limits, with formal similar to previous EKG performed in March. T-wave inversions have resolved. Case discussed with Dr. Gottlieb who recommends observation for further cardiac evaluation. Patient is agreeable to this care plan. Case discussed with Dr. Lala who accepts admission. - Lab Data Result diagrams: 08/10/18 13:19 08/10/18 13:19 Lab Results 08/10/18 08/10/18 08/10/18 Range/Units 13:19 13:19 13:19 WBC 4.7 (3.8-10.6) k/uL RBC 4.45 (3.80-5.40) m/uL Hgb 12.8 (11.4-16.0) gm/dL Hct 39.4 (34.0-46.0) % MCV 88.6 (80.0-100.0) fL MCH 28.8 (25.0-35.0) pg MCHC 32.5 (31.0-37.0) g/dL RDW 12.6 (11.5-15.5) % Plt Count 228 (150-450) k/uL Neutrophils % 63 % Lymphocytes % 26 % Monocytes % 6 % Eosinophils % 2 % Basophils % 1 % Neutrophils # 3.0 (1.3-7.7) k/uL Lymphocytes # 1.2 (1.0-4.8) k/uL Monocytes # 0.3 (0-1.0) k/uL Eosinophils # 0.1 (0-0.7) k/uL Basophils # 0.0 (0-0.2) k/uL Sodium 140 (137-145) mmol/L Potassium 4.4 (3.5-5.1) mmol/L Chloride 101 (98-107) mmol/L Carbon Dioxide 28 (22-30) mmol/L Anion Gap 11 mmol/L BUN 22 H (7-17) mg/dL Creatinine 0.97 (0.52-1.04) mg/dL Est GFR (CKD-EPI)AfAm 75 (>60 ml/min/1.73 sqM) Est GFR (CKD-EPI)NonAf 65 (>60 ml/min/1.73 sqM) Glucose 104 H (74-99) mg/dL Calcium 9.8 (8.4-10.2) mg/dL Troponin I (0.000-0.034) ng/mL NT-Pro-B Natriuret Pep 174 pg/mL 08/10/18 Range/Units 13:19 WBC (3.8-10.6) k/uL RBC (3.80-5.40) m/uL Hgb (11.4-16.0) gm/dL Hct (34.0-46.0) % MCV (80.0-100.0) fL MCH (25.0-35.0) pg MCHC (31.0-37.0) g/dL RDW (11.5-15.5) % Plt Count (150-450) k/uL Neutrophils % % Lymphocytes % % Monocytes % % Eosinophils % % Basophils % % Neutrophils # (1.3-7.7) k/uL Lymphocytes # (1.0-4.8) k/uL Monocytes # (0-1.0) k/uL Eosinophils # (0-0.7) k/uL Basophils # (0-0.2) k/uL Sodium (137-145) mmol/L Potassium (3.5-5.1) mmol/L Chloride (98-107) mmol/L Carbon Dioxide (22-30) mmol/L Anion Gap mmol/L BUN (7-17) mg/dL Creatinine (0.52-1.04) mg/dL Est GFR (CKD-EPI)AfAm (>60 ml/min/1.73 sqM) Est GFR (CKD-EPI)NonAf (>60 ml/min/1.73 sqM) Glucose (74-99) mg/dL Calcium (8.4-10.2) mg/dL Troponin I <0.012 (0.000-0.034) ng/mL NT-Pro-B Natriuret Pep pg/mL Disposition Clinical Impression: Palpitations, Abnormal EKG Disposition: ADMITTED IP TO THIS HOSP Condition: Good Referrals: Parker Gonzalez Jr, [Primary Care Provider] - 1-2 days Decision to Admit Reason: Admit from [facility] - Out of Hospital Transfer - Req. Specs Out of Hospital Transfer - Requested Specifics: Telemetry Unit
[2018-08-10 13:58] LABS: Basophils % (A) 1 %; Eosinophils # (A) 0.1 k/uL (0-0.7); Eosinophils % (A) 2 %; HCT 39.4 % (34.0-46.0); HGB 12.8 gm/dL (11.4-16.0); Lymphocytes # (A) 1.2 k/uL (1.0-4.8); Lymphocytes % (A) 26 %; MCH 28.8 pg (25.0-35.0); MCHC 32.5 g/dL (31.0-37.0); MCV 88.6 fL (80.0-100.0); Monocytes # (A) 0.3 k/uL (0-1.0); Monocytes % (A) 6 %; Neutrophils % (A) 63 %; Platelet Count 228 k/uL (150-450); RBC 4.45 m/uL (3.80-5.40); RDW 12.6 % (11.5-15.5); WBC 4.7 k/uL (3.8-10.6)
[2018-08-10 14:09] LABS: Calcium 9.8 mg/dL (8.4-10.2); Potassium 4.4 mmol/L (3.5-5.1)
[2018-08-10 14:31] VITALS: RESP 16
--- NOTE | 2018-08-10 14:51 | XR ---
EXAMINATION TYPE: XR chest 2V DATE OF EXAM: 08/10/2018 COMPARISON: 04/09/2018 HISTORY: Dizziness TECHNIQUE: Frontal and lateral views of the chest are obtained. FINDINGS: Heart and mediastinum are normal. Lungs are clear. Diaphragm is normal. Bony thorax appear s normal. There are chest leads. IMPRESSION: Normal chest. No change.
[2018-08-10] MEDS ORDERED: SULFAMETHOX-TMP 800-160MG 1 EACH TAB PO STA (14:52)
[2018-08-10] MEDS ORDERED: NALOXONE 0.4 MG/ML 1 ML VIAL IV PRN (16:59)
[2018-08-11 08:20] VITALS: PULSE 58
[2018-08-11] MEDS ORDERED: PANTOPRAZOLE 40 MG/10 ML VIAL IVP SCH (09:15)
--- NOTE | 2018-08-11 10:40 | P.CRDCN ---
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 Gonzalez as her primary care doctor. Patient apparently was seen by her primary care doc as an outpatient, found to have a UTI and was initiated on Bactrim however she states she did not fill her prescription yet. She presented to the hospital with symptoms of palpitations and feeling her heart racing fast. According to the patient she's had the sympt oms for quite some time, she usually takes a few deep breaths, and the symptoms seemed to go away. On this occasion, she had no relief of symptoms with taking deep breaths, for this reason she came to the emergency room for further evaluation and treatment. Patient denies any history of hypertension, no diabetes, she is unsure of her cholesterol, she takes propranolol for intermittent heart racing, she has family history of coronary artery disease in her brother who recently had bypass surgery, she also states that her son has WPW. Patient also states that she's been told in the past to have a mitral valve prolapse. Initial EKG on presentation here shows her to be in atrial tachycardia with nonspecific ST-T wave changes. Subsequent EKG shows a normal sinus rhythm with ST-T wave changes noted in the anterior leads. Chest x-ray normal. Blood pressure 104/50 with a heart rate in the 50s, 100% on room air. White blood cell count 4.7, hemoglobin 12.8, platelet count 228. Sodium 140, potassium 4.4, BUN 22 and creatinine 0.9. Magnesium level I.9, total bilirubin 1.5. Cholesterol 190, LDL 108, HDL 71, triglycerides 55. Positive UTI. We will obtain a TSH level however the patient does state that recently she was told to have thyroid problems, tried to fill her medication but the pharmacist refused because she was on propranolol. Past Medical History Past Medical History: Mitral Valve Prolapse (MVP), Thyroid Disorder Additional Past Medical History / Comment(s): mitral valve prolapse History of Any Multi-Drug Resistant Organisms: None Reported Past Surgical History: No Surgical Hx Reported Past Anesthesia/Blood Transfusion Reactions: No Reported Reaction Past Psychological History: No Psychological Hx Reported Smoking Status: Never smoker Past Alcohol Use History: None Reported Past Drug Use History: None Reported - Past Family History Mother Family Medical History: Pulmonary Embolus Father Family Medical History: Cancer Additional Family Medical History / Comment(s): stomach,CAD Medications and Allergies Home Medications Medication Instructions Recorded Confirmed Type Propranolol LA [Inderal LA] 80 mg PO DAILY@1130 08/03/15 08/10/18 History Cephalexin [Keflex] 500 mg PO Q6HR #28 cap 08/09/18 08/10/18 Rx Fluconazole [Diflucan] 150 mg PO ONCE #1 tab 08/09/18 08/10/18 Rx Allergies Allergy/AdvReac Type Severity Reaction Status Date / Time No Known Allergies Allergy Verified 08/10/18 13:28 Physical Exam Vitals: Vital Signs Temp Pulse Pulse Pulse Resp BP BP 08/11/18 08:17 98.3 F 58 L 16 102/50 08/11/18 03:44 98.2 F 56 L 16 121/59 08/10/18 23:58 97.9 F 55 L 16 111/57 08/10/18 20:00 97.6 F 60 16 146/61 08/10/18 19:12 98.2 F 70 16 146/81 08/10/18 18:30 98.2 F 71 16 152/67 08/10/18 18:05 98.2 F 71 16 152/67 08/10/18 14:29 70 16 146/81 08/10/18 13:51 70 08/10/18 12:44 98 F 125 H 18 150/69 Pulse Ox 08/11/18 08:17 100 08/11/18 03:44 99 08/10/18 23:58 98 08/10/18 20:00 98 08/10/18 19:12 98 08/10/18 18:30 98 08/10/18 18:05 98 08/10/18 14:29 98 08/10/18 13:51 08/10/18 12:44 100 Intake and Output 08/10/18 08/11/18 08/11/18 22:59 06:59 14:59 Other: Weight 56.7 kg PHYSICAL EXAMINATION: GENERAL: 78-year-old female in no acute distress at the time of my examination HEENT: Head is atraumatic, normocephalic. Pupils equal, round. Sclera anicteric. Conjunctiva are clear. Mucous membranes of the mouth are moist. Neck is supple. There is no elevated jugular venous pressure. No Carotid bruit is heard. HEART EXAMINATION: Heart S1 S2 1 systolic murmur is heard CHEST EXAMINATION: Lungs are clear to auscultation and precussion. No chest wall tenderness is noted on palpation or with deep breathing. ABDOMEN: Soft, nontender. Bowel sounds are heard. No organomegaly noted. EXTREMITIES: 2+ peripheral pulses with no evidence of peripheral edema and no c skilled nursing tenderness noted. NEUROLOGIC patient is awake, alert and oriented 3 . . Results 08/10/18 13:19 08/10/18 13:19 Cardiac Enzymes 08/10/18 08/10/18 08/11/18 Range/Units 13:19 19:12 01:14 Troponin I <0.012 <0.012 <0.012 (0.000-0.034) ng/mL CBC 08/10/18 Range/Units 13:19 WBC 4.7 (3.8-10.6) k/uL RBC 4.45 (3.80-5.40) m/uL Hgb 12.8 (11.4-16.0) gm/dL Hct 39.4 (34.0-46.0) % Plt Count 228 (150-450) k/uL Comprehensive Metabolic Panel 08/10/18 Range/Units 13:19 Sodium 140 (137-145) mmol/L Potassium 4.4 (3.5-5.1) mmol/L Chloride 101 (98-107) mmol/L Carbon Dioxide 28 (22-30) mmol/L BUN 22 H (7-17) mg/dL Creatinine 0.97 (0.52-1.04) mg/dL Glucose 104 H (74-99) mg/dL Calcium 9.8 (8.4-10.2) mg/dL Current Medications Generic Name Dose Route Start Last Admin Trade Name Freq PRN Reason Stop Dose Admin Naloxone HCl 0.2 mg 08/10/18 16:59 Narcan IV Q2M PRN Opioid Reversal Pantoprazole Sodium 40 mg 08/11/18 09:15 Protonix IVP DAILY TERRY Propranolol HCl 80 mg 08/11/18 11:30 Inderal La PO DAILY@1130 TERRY Intake and Output 08/10/18 08/11/18 08/11/18 22:59 06:59 14:59 Other: Weight 56.7 kg 08/10/18 13:19 08/10/18 13:19 EKG Interpretations (text) EKG shows an atrial tachycardia with rapid ventricular response, subsequent EKG shows a normal sinus rhythm with ST-T wave changes noted in the anterior leads. Assessment and Plan Plan: Assessment and plan #1 Palpitations, evidence of atrial tachycardia him a possible AVNRT on initial EKG. Subsequent EKG shows normal sinus rhythm with ST-T wave changes noted in the anterior leads, appeared to be new from prior EKG. #2 straight of mitral valve prolapse #3 UTI, on antibiotic Plan We'll obtain an echocardiogram with Doppler study as well as TSH level. In seeing your beta robyn, further recommendations to follow. DNP note has been reviewed, I agree with a documented findings and plan of care. Patient was seen and examined.
[2018-08-11] MEDS ORDERED: PROPRANOLOL LA 80 MG CAP.SA.24H PO SCH (11:30)
[2018-08-11 11:50] LABS: Basophils % (A) 1 %; Eosinophils # (A) 0.1 k/uL (0-0.7); Eosinophils % (A) 2 %; HCT 37.3 % (34.0-46.0); HGB 12.5 gm/dL (11.4-16.0); Lymphocytes # (A) 1.2 k/uL (1.0-4.8); Lymphocytes % (A) 25 %; MCH 29.5 pg (25.0-35.0); MCHC 33.5 g/dL (31.0-37.0); MCV 88.1 fL (80.0-100.0); Mean Platelet Volume 8.3; Monocytes # (A) 0.3 k/uL (0-1.0); Monocytes % (A) 5 %; Neutrophils # (A) 3.1 k/uL (1.3-7.7); Neutrophils % (A) 65 %; Platelet Count 201 k/uL (150-450); RBC 4.23 m/uL (3.80-5.40); RDW 13.7 % (11.5-15.5); WBC 4.8 k/uL (3.8-10.6)
[2018-08-11 11:59] LABS: African American GFR (CKD) >90 (>60 ml/min/1.73 sqM); Anion Gap 9 mmol/L; Blood Urea Nitrogen 16 mg/dL (7-17); Calcium 9.7 mg/dL (8.4-10.2); Carbon Dioxide 31 mmol/L (22-30); Chloride 100 mmol/L (98-107); Glucose 87 mg/dL (74-99); Magnesium 1.9 mg/dL (1.6-2.3); Potassium 4.5 mmol/L (3.5-5.1); Sodium 140 mmol/L (137-145)
[2018-08-11 12:13] LABS: T4, Free (Free Thyroxine) 1.27 ng/dL (0.78-2.19)
[2018-08-11 12:35] VITALS: BP 112/54; TEMP 97.8
[2018-08-11] MEDS ORDERED: FLUCONAZOLE 100 MG TAB PO ONE (13:27)
[2018-08-11] MEDS ORDERED: VERAPAMIL SR 180 MG TABLET.ER PO SCH (13:30)
[2018-08-11] MEDS ORDERED: SULFAMETHOX-TMP 800-160MG 1 EACH TAB PO SCH (13:30)
--- NOTE | 2018-08-11 13:46 | ECHOF ---
Referral Reason:palpitations MEASUREMENTS -------- HEIGHT: 165.1 cm WEIGHT: 56.7 kg BP: 102/50 RVIDd: 2.3 cm (< 3.3) IVSd: 1.0 cm (0.6 - 1.1) LVIDd: 4.7 cm (3.9 - 5.3) LVPWd: 0.9 cm (0.6 - 1.1) IVSs: 1.0 cm LVIDs: 3.4 cm LVPWs: 1.1 cm LAESV Index (A-L): 30.49 ml/m Ao Diam: 2.6 cm (2.0 - 3.7) AV Cusp: 1.5 cm (1.5 - 2.6) LA Diam: 2.7 cm (2.7 - 3.8) MV EF SLOPE: 69 mm/s (70 - 150) EPSS: 0.7 cm MV E Juan: 0.68 m/s MV DecT: 422 ms MV A Juan: 0.42 m/s MV E/A Ratio: 1.62 AV maxP.09 mmHg AV meanP.36 mmHg FINDINGS -------- Sinus rhythm. This was a technically good study. The left ventricular size is normal. There is borderline concentric left ventricular hypertrophy. Overall left ventricular systolic function is low-normal with, an EF between 50 - 55 %. The right ventricle is normal in size. LA is midly dilated 29-33ml/m2. The right atrial size is normal. Interatrial and interventricular septum intact. The aortic valve is trileaflet, and appears structurally normal. No aortic stenosis or regurgitation. The mitral valve is normal. Mild mitral regurgitation is present. Mild prolapse of the anterior m itral valve leaflet. The tricuspid valve appears structurally normal. Trace tricuspid regurgitation present. Right francia tricular systolic pressure is normal at < 35 mmHg. Trace/mild (physiologic) pulmonic regurgitation. The aortic root size is normal. The pulmonary artery is normal. Normal inferior vena cava with normal inspiratory collapse consistent with estimated right atrial pre ssure of 5 mmHg. All pulmonary veins appear normal. There is no pericardial effusion. CONCLUSIONS -------- 1. Sinus rhythm. 2. This was a technically good study. 3. The left ventricular size is normal. 4. There is borderline concentric left ventricular hypertrophy. 5. Overall left ventricular systolic function is low-normal with, an EF between 50 - 55 %. 6. LA is midly dilated 29-33ml/m2. 7. The aortic valve is trileaflet, and appears structurally normal. No aortic stenosis or regurgitati on. 8. Mild mitral regurgitation is present. 9. Mild prolapse of the anterior mitral valve leaflet. 10. The tricuspid valve appears structurally normal. 11. Trace tricuspid regurgitation present. 12. Right ventricular systolic pressure is normal at < 35 mmHg. 13. Trace/mild (physiologic) pulmonic regurgitation. 14. The aortic root size is normal. 15. The pulmonary artery is normal. 16. Normal inferior vena cava with normal inspiratory collapse consistent with estimated right atrial pressure of 5 mmHg. 17. All pulmonary veins appear normal. 18. There is no pericardial effusion. APPLICATIONS COORDINATOR: Suraj Mccormick RDCS
--- NOTE | 2018-08-11 16:41 | P.HPIM ---
History of Present Illness H&P Date: 08/11/18 Chief Complaint: Palpitations This is a 58-year-old female with history of mitral valve prolapse, hypothyroidism, family history of WPW-son, CAD-brother and father, presented to the ER with complaints of persistent palpitations palpitations accompanied by mild shortness of breath. Denies chest pain. Denies lightheadedness , positive dizziness with occurrence of palpitations, no headache or visual deficits. Denies nausea vomiting or diarrhea. Denies abdominal pain Yesterday patient had presented to the ER diagnosed with possible acute UTI, had not yet filled prescription for antibiotic. UA reporting elevated urine WBCs at 141, large leukocytes. Urine culture reporting no growth after 18 hours.(Afebrile yesterday.) Initial EKG reporting accelerated junctional/atrial tachycardia, with rate of 126 on admission, ST depressions in leads [address] segment inversions V3 through V6( new compared to EKF of 04/09/18). Troponins negative 3. Received aspirin. Repeat EKG reported sinus rhythm, heart rates in the 70s, T-wave inversions resolved. Chest x-ray reported as normal. Afebrile, normal WBC. Telemetry currently sinus bradycardia in the 50s. Reports history of thyroid disease, not on medication. Thyroid panel negative. Review of Systems ROS Statement: Those systems with pertinent positive or pertinent negative responses have been documented in the HPI. ROS Other: All systems not noted in ROS Statement are negative. Cardiovascular: Reports: palpitations Past Medical History Past Medical History: Mitral Valve Prolapse (MVP), Thyroid Disorder Additional Past Medical History / Comment(s): mitral valve prolapse History of Any Multi-Drug Resistant Organisms: None Reported Past Surgical History: No Surgical Hx Reported Past Anesthesia/Blood Transfusion Reactions: No Reported Reaction Past Psychological History: No Psychological Hx Reported Smoking Status: Never smoker Past Alcohol Use History: None Reported Past Drug Use History: None Reported - Past Family History Mother Family Medical History: Pulmonary Embolus Father Family Medical History: Cancer Additional Family Medical History / Comment(s): stomach,CAD Medications and Allergies Home Medications Medication Instructions Recorded Confirmed Type Fluconazole [Diflucan] 150 mg PO ONCE #1 tab 08/09/18 08/10/18 Rx Fluconazole [Diflucan] 200 mg PO DAILY #2 tab 08/11/18 Rx RX: Propranolol [Inderal] 80 mg PO MOWEFR tab 08/11/18 Rx RX: Sulfamethox-Tmp 800-160Mg 1 each PO BID tab 08/11/18 Rx [Bactrim DS 800-160 mg] RX: Verapamil Sr [Isoptin Sr] 120 mg PO DAILY #30 tablet.er 08/11/18 Rx Allergies Allergy/AdvReac Type Severity Reaction Status Date / Time No Known Allergies Allergy Verified 08/10/18 13:28 Physical Exam Vitals: Vital Signs Temp Pulse Pulse Pulse Resp BP BP 08/11/18 08:17 98.3 F 58 L 16 102/50 08/11/18 03:44 98.2 F 56 L 16 121/59 08/10/18 23:58 97.9 F 55 L 16 111/57 08/10/18 20:00 97.6 F 60 16 146/61 08/10/18 19:12 98.2 F 70 16 146/81 08/10/18 18:30 98.2 F 71 16 152/67 08/10/18 18:05 98.2 F 71 16 152/67 08/10/18 14:29 70 16 146/81 08/10/18 13:51 70 08/10/18 12:44 98 F 125 H 18 150/69 Pulse Ox 08/11/18 08:17 100 08/11/18 03:44 99 08/10/18 23:58 98 08/10/18 20:00 98 08/10/18 19:12 98 08/10/18 18:30 98 08/10/18 18:05 98 08/10/18 14:29 98 08/10/18 13:51 08/10/18 12:44 100 Intake and Output 08/10/18 08/11/18 08/11/18 22:59 06:59 14:59 Other: Weight 56.7 kg PHYSICAL EXAM: VITAL SIGNS: [] GENERAL: HEENT: Conjunctivae normal. eyes normal. NECK: No JVD. No thyroid enlargement. No LNs CARDIOVASCULAR: S1, S2 regular. Systolic murmur RESPIRATION: Breath sounds diminished in the bases. No rhonchi or crackles. No bronchial breathing. ABDOMEN: Soft, nontender . No guarding. no masses palpable. No ascites, No hepatosplenomegaly.Bowel sounds heard. LEGS: No edema. no swelling PSYCHIATRY: Alert and oriented X3, mood and affect normal. NERVOUS SYSTEM: Cranial N 2-12 grossly normal. Moves all 4 limbs. Diffuse weakness No focal deficits. Strength and sensation grossly intact.. Skin: no lesions, no rash Joints: No active swelling. No inflammation. Lymphatic system. No LN neck axilla or groin. Results CBC & Chem 7: 08/11/18 10:52 08/11/18 10:52 Labs: Abnormal Lab Results - Last 24 Hours (Table) 08/10/18 Range/Units 13:19 BUN 22 H (7-17) mg/dL Glucose 104 H (74-99) mg/dL Thrombosis Risk Factor Assmnt - Choose All That Apply Each Factor Represents 1 point: Age 41-60 years Thrombosis Risk Factor Assessment Total Risk Factor Score: 1 Thrombosis Risk Factor Assessment Level: Low Risk Assessment and Plan Assessment: -Palpitations ,EKG with accelerated junctional,atrial tachycardia with ST-T wave changes of anterior leads. Normal LV function per echo EF 50-55%. -History of mitral valve prolapse -Acute UTI Plan: Continue current medication regime ,monitoring and symptomatic treatment. All meds have been reviewed and resumed. Possible stress or event monitor - defer to cardiology.Evaluated by cardiology. Verapamil initiated. Patient has been cleared for discharge by cardiology with follow-up in one week. Patient is instructed to take Inderal every other day 3 doses then DC. Patient is being discharged home in stable condition with guarded prognosis. The impression and plan of care has been dictated as directed. : I performed a history and examination of this patient, discussed the same with the dictator. I agree with the dictator's note ,documented as a scribe. Any additional findings or plans will be noted. Time taken: 35 minutes
[2018-08-12] MEDS ORDERED: VERAPAMIL SR 120 MG TABLET.ER PO SCH (09:00)
[2018-08-13] MEDS ORDERED: PROPRANOLOL 40 MG TAB PO SCH (09:00)
== END 2018-08-11 18:31 | disposition home or self-care (01) ==
LOC: EC 12:41 → 3SCARD 16:59
PROVIDERS: ADMIT Family Medicine; ATTEND Family Medicine
DX: R00.2 Palpitations (principal); N39.0 Urinary tract infection, site not specified; I34.1 Nonrheumatic mitral (valve) prolapse; I34.0 Nonrheumatic mitral (valve) insufficiency; E03.9 Hypothyroidism, unspecified; I47.1 Supraventricular tachycardia; Z79.899 Other long term (current) drug therapy; Z79.2 Long term (current) use of antibiotics; Z82.49 Family history of ischemic heart disease and other diseases of the circulatory system
CPT/HCPCS: 96374; 99285; 36415; 93005; 93306; 84439; 83880; 80048 ×2; 84443; 83735; 84484 ×2; 85025 ×2; 71046; G0378 ×2; C9113

== ENCOUNTER 2019-01-19 04:19 | Inpatient (IN) | payer MEDICAID ==
[2019-01-19] MEDS ORDERED: SODIUM CHLORIDE 0.9% 1,000 ML IV ONE (04:33)
[2019-01-19] MEDS ORDERED: ONDANSETRON 4 MG/2 ML VIAL IM STA (04:33)
[2019-01-19] MEDS ORDERED: ONDANSETRON 4 MG/2 ML VIAL IVP STA ×2 (04:48→06:27)
[2019-01-19 04:59] LABS: Basophils % (A) 0 %; Eosinophils # (A) 0.1 k/uL (0-0.7); Eosinophils % (A) 1 %; HCT 42.7 % (34.0-46.0); HGB 14.2 gm/dL (11.4-16.0); Lymphocytes # (A) 0.2 k/uL (1.0-4.8); Lymphocytes % (A) 2 %; MCH 30.2 pg (25.0-35.0); MCHC 33.3 g/dL (31.0-37.0); MCV 90.7 fL (80.0-100.0); Mean Platelet Volume 7.5; Monocytes # (A) 0.4 k/uL (0-1.0); Monocytes % (A) 4 %; Neutrophils # (A) 10.1 k/uL (1.3-7.7); Neutrophils % (A) 93 %; Platelet Count 215 k/uL (150-450); RBC 4.71 m/uL (3.80-5.40); RDW 12.8 % (11.5-15.5); WBC 10.9 k/uL (3.8-10.6)
--- NOTE | 2019-01-19 05:09 | ED ---
Nausea/Vomiting/Diarrhea HPI - General Chief complaint: Nausea/Vomiting/Diarrhea Stated complaint: Nausea Source: patient Mode of arrival: wheelchair Limitations: no limitations - History of Present Illness MD complaint: nausea, vomiting, diarrhea Onset/Timin -: hour(s) Description of Vomiting: watery Description of Diarrhea: water Associated Abdominal Pain: No Consistency: constant Improves with: none Worsens with: none - Related Data Previous Rx's Medication Instructions Recorded Fluconazole [Diflucan] 150 mg PO ONCE #1 tab 08/09/18 Fluconazole [Diflucan] 200 mg PO DAILY #2 tab 08/11/18 Propranolol [Inderal] 80 mg PO MOWEFR tab 08/11/18 Sulfamethox-Tmp 800-160Mg [Bactrim 1 each PO BID tab 08/11/18 DS 800-160 mg] Verapamil Sr [Isoptin Sr] 120 mg PO DAILY #30 tablet.er 08/11/18 Allergies Allergy/AdvReac Type Severity Reaction Status Date / Time No Known Allergies Allergy Verified 01/19/19 04:24 Review of Systems ROS Statement: Those systems with pertinent positive or pertinent negative responses have been documented in the HPI. ROS Other: All systems not noted in ROS Statement are negative. Past Medical History Past Medical History: Mitral Valve Prolapse (MVP), Thyroid Disorder Additional Past Medical History / Comment(s): mitral valve prolapse History of Any Multi-Drug Resistant Organisms: None Reported Past Surgical History: No Surgical Hx Reported Past Anesthesia/Blood Transfusion Reactions: No Reported Reaction Past Psychological History: No Psychological Hx Reported Smoking Status: Never smoker Past Alcohol Use History: None Reported Past Drug Use History: None Reported - Past Family History Mother Family Medical History: Pulmonary Embolus Father Family Medical History: Cancer Additional Family Medical History / Comment(s): stomach,CAD General Exam Limitations: no limitations Course Vital Signs 01/19/19 01/19/19 01/19/19 04:21 05:29 06:09 Temperature 97.6 F 98.1 F 97.7 F Pulse Rate 75 71 76 Respiratory 18 18 18 Rate Blood Pressure 106/69 125/63 133/72 O2 Sat by Pulse 98 100 96 Oximetry Medical Decision Making - Lab Data Result diagrams: 01/19/19 04:40 01/19/19 04:40 Lab Results 01/19/19 01/19/19 01/19/19 Range/Units 04:40 04:40 06:11 WBC 10.9 H (3.8-10.6) k/uL RBC 4.71 (3.80-5.40) m/uL Hgb 14.2 (11.4-16.0) gm/dL Hct 42.7 (34.0-46.0) % MCV 90.7 (80.0-100.0) fL MCH 30.2 (25.0-35.0) pg MCHC 33.3 (31.0-37.0) g/dL RDW 12.8 (11.5-15.5) % Plt Count 215 (150-450) k/uL Neutrophils % 93 % Lymphocytes % 2 % Monocytes % 4 % Eosinophils % 1 % Basophils % 0 % Neutrophils # 10.1 H (1.3-7.7) k/uL Lymphocytes # 0.2 L (1.0-4.8) k/uL Monocytes # 0.4 (0-1.0) k/uL Eosinophils # 0.1 (0-0.7) k/uL Basophils # 0.0 (0-0.2) k/uL Sodium 140 (137-145) mmol/L Potassium 4.9 (3.5-5.1) mmol/L Chloride 102 (98-107) mmol/L Carbon Dioxide 28 (22-30) mmol/L Anion Gap 10 mmol/L BUN 24 H (7-17) mg/dL Creatinine 0.86 (0.52-1.04) mg/dL Est GFR (CKD-EPI)AfAm 87 (>60 ml/min/1.73 sqM) Est GFR (CKD-EPI)NonAf 76 (>60 ml/min/1.73 sqM) Glucose 153 H (74-99) mg/dL Calcium 10.3 H (8.4-10.2) mg/dL Total Bilirubin 1.4 H (0.2-1.3) mg/dL AST 32 (14-36) U/L ALT 29 (9-52) U/L Alkaline Phosphatase 60 (38-126) U/L Total Protein 9.1 H (6.3-8.2) g/dL Albumin 5.2 H (3.5-5.0) g/dL Amylase 83 (30-110) U/L Lipase 114 (23-300) U/L Urine Color Yellow Urine Appearance Clear (Clear) Urine pH 5.0 (5.0-8.0) Ur Specific [place] 1.021 (1.001-1.035) Urine Protein Negative (Negative) Urine Glucose (UA) Negative (Negative) Urine Ketones Negative (Negative) Urine Blood Trace H (Negative) Urine Nitrite Negative (Negative) Urine Bilirubin Negative (Negative) Urine Urobilinogen <2.0 (<2.0) mg/dL Ur Leukocyte Esterase Trace H (Negative) Urine RBC 1 (0-5) /hpf Urine WBC 1 (0-5) /hpf Ur Squamous Epith Cells <1 (0-4) /hpf Hyaline Casts 1 (0-2) /lpf Urine Mucus Rare H (None) /hpf Disposition Clinical Impression: Intractable vomiting with nausea Disposition: ADMITTED IP TO THIS HOSP Condition: Fair Is patient prescribed a controlled substance at d/c from ED?: No Referrals: Parker Gonzalez Jr, [Primary Care Provider] - 1-2 days
--- NOTE | 2019-01-19 05:09 | XR ---
EXAMINATION TYPE: XR KUB DATE OF EXAM: 01/19/2019 COMPARISON: NONE HISTORY: Abdominal pain TECHNIQUE: 2 views supine FINDINGS: Bowel gas pattern is normal. There is no sign of intestinal obstruction or pneumoperitoneum . Fecal pattern is normal. There is no evidence of a mass. Lung bases are clear. There are phlebolith s in the pelvis. There are no calcifications over the kidneys. IMPRESSION: Nonacute abdomen.
[2019-01-19 05:22] LABS: Albumin 5.2 g/dL (3.5-5.0); Calcium 10.3 mg/dL (8.4-10.2); Potassium 4.9 mmol/L (3.5-5.1); Total Bilirubin 1.4 mg/dL (0.2-1.3); Total Protein 9.1 g/dL (6.3-8.2)
[2019-01-19] MEDS ORDERED: PROMETHAZINE INJ 25 MG in SODIUM CHLORIDE 0.9% 50 ML IVPB ONE (06:00)
[2019-01-19 06:24] LABS: Appearance,Urine Clear (Clear); Bilirubin,Urine Negative (Negative); Blood,Urine Trace (Negative); Color,Urine Yellow; Glucose,Urine (UA) Negative (Negative); Hyaline Casts,Urine 1 /lpf (0-2); Ketones,Urine Negative (Negative); Leukocyte Esterase,Urine Trace (Negative); Mucus,Urine Rare /hpf; Nitrite,Urine Negative (Negative); Protein,Urine Negative (Negative); RBC,Urine 1 /hpf (0-5); Specific Gravity,Urine 1.021 (1.001-1.035); Squamous Epithelial Cell,Urine <1 /hpf (0-4); Urobilinogen,Urine <2.0 mg/dL (<2.0)
[2019-01-19] MEDS ORDERED: SODIUM CHLORIDE 0.9% 500 ML 500 ML IV STA (06:27)
[2019-01-19] MEDS ORDERED: NALOXONE 0.4 MG/ML 1 ML VIAL IV PRN (07:17)
[2019-01-19] MEDS ORDERED: PROMETHAZINE INJ 25 MG in SODIUM CHLORIDE 0.9% 50 ML IVPB PRN (07:21)
[2019-01-19] MEDS ORDERED: ONDANSETRON 4 MG/2 ML VIAL IVP PRN (07:21)
[2019-01-19] MEDS: SODIUM CHLORIDE 0.9% 1,000 ML IV SCH ×2 (08:14→16:23)
[2019-01-19] MEDS: PROPRANOLOL LA 80 MG CAP.SA.24H PO SCH (11:29)
[2019-01-19] MEDS: PANTOPRAZOLE 40 MG/10 ML VIAL IVP SCH (14:39)
--- NOTE | 2019-01-19 16:02 | P.HPIM ---
History of Present Illness H&P Date: 01/20/19 Chief Complaint: nausea vomiting diarrhea this is a 58-year-old femalewith history of mitral valve prolapse, hypothyroidism, takes propanolol for intermittent heart racing with the family history of CAD, son has WPW and multiple other medical issues, presented to the ER with complaints of nausea vomiting ,diarrhea and generalized weakness this started last night after eating leftover turkey which have been refrigerated since Thanksgi. denies fever or chills. denies abdominal pain.VSS.Received Phenergan, Zofran and IV fluid hydration in the ER. Nausea vomiting resolved, continues to have ongoing diarrhea.C. difficile ruled out out.denies chest pain, palpitations or shortness of breath.total bili 1.4, LFTs within normal limits. Review of Systems ROS Statement: Those systems with pertinent positive or pertinent negative responses have been documented in the HPI. ROS Other: All systems not noted in ROS Statement are negative. Past Medical History Past Medical History: Mitral Valve Prolapse (MVP), Thyroid Disorder Additional Past Medical History / Comment(s): mitral valve prolapse History of Any Multi-Drug Resistant Organisms: None Reported Past Surgical History: No Surgical Hx Reported Past Anesthesia/Blood Transfusion Reactions: No Reported Reaction Past Psychological History: No Psychological Hx Reported Smoking Status: Never smoker Past Alcohol Use History: None Reported Past Drug Use History: None Reported - Past Family History Mother Family Medical History: Pulmonary Embolus Father Family Medical History: Cancer Additional Family Medical History / Comment(s): stomach,CAD Medications and Allergies Home Medications Medication Instructions Recorded Confirmed Type Propranolol HCl [Inderal Xl] 80 mg PO DAILY@1130 01/19/19 01/19/19 History Allergies Allergy/AdvReac Type Severity Reaction Status Date / Time No Known Allergies Allergy Verified 01/19/19 08:06 Physical Exam Vitals: Vital Signs Temp Pulse Pulse Resp BP BP Pulse Ox 01/19/19 11:36 98.9 F 80 18 95/56 96 01/19/19 08:18 98.5 F 87 16 132/74 99 01/19/19 06:09 97.7 F 76 18 133/72 96 01/19/19 05:29 98.1 F 71 18 125/63 100 01/19/19 04:21 97.6 F 75 18 106/69 98 Intake and Output 01/19/19 01/19/1901/19/19 06:59 14:59 22:59 Output Total 1 Balance -1 Output: Stool 1 Other: # Voids 1 # Bowel Movements 1 Weight 58.06 kg 58.06 kg PHYSICAL EXAM: VITAL SIGNS: [as above] GENERAL: sitting up in bed, tired appearing HEENT: Conjunctivae normal. eyes normal. NECK: No JVD. No thyroid enlargement. No LNs CARDIOVASCULAR: S1, S2 regular. positive systolic murmur RESPIRATION: Breath sounds diminished in the bases. No rhonchi or crackles. No bronchial breathing. ABDOMEN: Soft, nontender . No guarding. no masses palpable. No ascites, No hepatosplenomegaly.Bowel sounds heard. LEGS: No edema. no swelling PSYCHIATRY: Alert and oriented X3, mood and affect normal. NERVOUS SYSTEM: Cranial N 2-12 grossly normal. Moves all 4 limbs. Diffuse weakness No focal deficits. Strength and sensation grossly intact.. Skin: no lesions, no rash Joints: No active swelling. No inflammation. Lymphatic system. No LN neck axilla or groin. Results CBC & Chem 7: 01/19/19 04:40 01/19/19 04:40 Labs: Abnormal Lab Results - Last 24 Hours (Table) 01/19/19 01/19/19 01/19/19 Range/Units 04:40 04:40 06:11 WBC 10.9 H (3.8-10.6) k/uL Neutrophils # 10.1 H (1.3-7.7) k/uL Lymphocytes # 0.2 L (1.0-4.8) k/uL BUN 24 H (7-17) mg/dL Glucose 153 H (74-99) mg/dL Calcium 10.3 H (8.4-10.2) mg/dL Total Bilirubin 1.4 H (0.2-1.3) mg/dL Total Protein 9.1 H (6.3-8.2) g/dL Albumin 5.2 H (3.5-5.0) g/dL Urine Blood Trace H (Negative) Ur Leukocyte Esterase Trace H (Negative) Urine Mucus Rare H (None) /hpf Thrombosis Risk Factor Assmnt - Choose All That Apply Any of the Below Risk Factors Present?: Yes Each Factor Represents 1 point: Age 41-60 years Other Risk Factors: Yes Each Risk Factor Represents 2 Points: Age 61-74 years Thrombosis Risk Factor Assessment Total Risk Factor Score: 3 Thrombosis Risk Factor Assessment Level: Moderate Risk Assessment and Plan Assessment: intractable nausea vomiting diarrhea, suspect gastritis, gastroenteritis. C. difficile ruled out out history mitral valve prolapse Hypothyroidism Family history of Rwhtr-Mgfmvjpjs-Hpxdq syndrome Family history of CAD Plan: Continue on current medication regime ,monitoring and symptomatic treatment. GI prophylaxis in place.continues on multiple uncontrollable episodes of diarrhea C. difficile ruled out, Questran added to med regime.diet initiated, advance as tolerated. home meds have been reviewed and resumed accordingly.maintain IV fluid hydration, close monitoring overnight with discharge planning in progress for tomorrow. The impression and plan of care has been dictated as directed. : I performed a history and examination of this patient, discussed the same with the dictator. I agree with the dictator's note ,documented as a scribe. Any additional findings or plans will be noted.
[2019-01-19] MEDS: ACETAMINOPHEN TAB 325 MG TAB PO PRN (17:41)
[2019-01-19] MEDS: CHOLESTYRAMINE (WITH SUGAR) 4 GM PACKET PO SCH (22:38)
[2019-01-20] MEDS: SODIUM CHLORIDE 0.9% 1,000 ML IV SCH ×2 (01:55→11:47)
[2019-01-20 08:06] LABS: African American GFR (CKD) >90 (>60 ml/min/1.73 sqM); Anion Gap 6 mmol/L; Blood Urea Nitrogen 14 mg/dL (7-17); Calcium 8.1 mg/dL (8.4-10.2); Carbon Dioxide 24 mmol/L (22-30); Chloride 109 mmol/L (98-107); Glucose 92 mg/dL (74-99); Non-African American GFR(CKD) >90 (>60 ml/min/1.73 sqM); Potassium 3.7 mmol/L (3.5-5.1); Sodium 139 mmol/L (137-145)
[2019-01-20 08:07] LABS: Basophils % (A) 0 %; Eosinophils % (A) 1 %; Lymphocytes # (A) 0.5 k/uL (1.0-4.8); Lymphocytes % (A) 21 %; MCH 30.8 pg (25.0-35.0); MCV 90.6 fL (80.0-100.0); Mean Platelet Volume 6.7; Monocytes # (A) 0.2 k/uL (0-1.0); Monocytes % (A) 7 %; Neutrophils # (A) 1.6 k/uL (1.3-7.7); Neutrophils % (A) 70 %; Platelet Count 110 k/uL (150-450); RBC 3.53 m/uL (3.80-5.40); RDW 12.8 % (11.5-15.5); WBC 2.3 k/uL (3.8-10.6)
[2019-01-20 08:13] LABS: HGB 10.9 gm/dL (11.4-16.0)
[2019-01-20] MEDS: ACETAMINOPHEN TAB 325 MG TAB PO PRN ×2 (08:48→15:12)
[2019-01-20] MEDS: CHOLESTYRAMINE (WITH SUGAR) 4 GM PACKET PO SCH ×3 (11:34→19:32)
[2019-01-20] MEDS: PROPRANOLOL LA 80 MG CAP.SA.24H PO SCH (11:46)
[2019-01-20] MEDS: PANTOPRAZOLE 40 MG/10 ML VIAL IVP SCH (11:47)
[2019-01-20 12:01] LABS: HCT 31.8 % (34.0-46.0); MCH 31.4 pg (25.0-35.0); MCHC 34.7 g/dL (31.0-37.0); MCV 90.5 fL (80.0-100.0); Mean Platelet Volume 6.3; Platelet Count 101 k/uL (150-450); RBC 3.52 m/uL (3.80-5.40); RDW 12.8 % (11.5-15.5)
--- NOTE | 2019-01-20 14:36 | P.PN ---
Subjective Progress Note Date: 01/27/19 Chief Complaint: nausea vomiting diarrhea this is a 58-year-old femalewith history of mitral valve prolapse, hypothyroidism, takes propanolol for intermittent heart racing with the family history of CAD, son has WPW and multiple other medical issues, presented to the ER with complaints of nausea vomiting ,diarrhea and generalized weakness this started last night after eating leftover turkey which have been refrigerated since Thanks. denies fever or chills. denies abdominal pain.VSS.Received Phenergan, Zofran and IV fluid hydration in the ER. Nausea vomiting resolved, c ontinues to have ongoing diarrhea.C. difficile ruled out out.denies chest pain, palpitations or shortness of breath.total bili 1.4, LFTs within normal limits. 01/20/2019 tolerating diet advancement to soft food with no nausea or vomiting. Questran initiated yesterday, and diarrhea significantly improved, reporting only 3 episodes today. Tested negative for C. difficile. Maintained on IV fluid hydration. Hemoglobin 10.9, WBC down to 2.3. Denies lightheadedness, dizziness or focal deficits. T-max 102.6. Objective - Vital Signs Vital signs: Vital Signs Temp 98.5 F 01/20/19 07:00 Pulse 96 01/20/19 08:48 Resp 12 01/20/19 08:48 BP 122/70 01/20/19 07:00 Pulse Ox 96 01/20/19 07:00 Intake & Output 01/19/19 01/20/19 01/20/19 18:59 06:59 18:59 Output Total 401 Balance -401 Weight 58.06 kg Output: Urine 400 Stool 1 Other: Voiding Method Toilet Toilet Toilet # Voids 1 1 # Bowel Movements 1 - Exam PHYSICAL EXAM: VITAL SIGNS: [as above] GENERAL: sitting up in bed, no acute distress HEENT: Conjunctivae normal. eyes normal. Oral mucosa moist NECK: No JVD. No thyroid enlargement. No LNs CARDIOVASCULAR: S1, S2 regular. positive systolic murmur RESPIRATION: Breath sounds diminished in the bases. No rhonchi or crackles. No wheezing. ABDOMEN: Soft, nondistended, nontender .No guarding. no masses palpable.Bowel sounds heard. LEGS: No edema. no swelling PSYCHIATRY: Alert and oriented X3, mood and affect normal. NERVOUS SYSTEM: Cranial N 2-12 grossly normal. Moves all 4 limbs. Diffuse weakness No focal deficits. Strength and sensation grossly intact. Skin: no lesions, no rash - Labs CBC & Chem 7: 01/20/19 11:30 01/20/19 07:04 Labs: Abnormal Lab Results - Last 24 Hours (Table) 01/20/19 01/20/19 01/20/19 Range/Units 07:04 07:04 11:30 WBC 2.3 L 2.0 L (3.8-10.6) k/uL RBC 3.53 L 3.52 L (3.80-5.40) m/uL Hgb 10.9 L D 11.0 L (11.4-16.0) gm/dL Hct 32.0 L 31.8 L (34.0-46.0) % Plt Count 110 L 101 L (150-450) k/uL Lymphocytes # 0.5 L (1.0-4.8) k/uL Chloride 109 H (98-107) mmol/L Calcium 8.1 L (8.4-10.2) mg/dL Microbiology - Last 24 Hours (Table) 01/19/19 18:17 Stool Culture - Preliminary Stool Assessment and Plan Assessment: intractable nausea vomiting diarrhea, improving, suspect viral gastroenteritis. C. difficile ruled out out history mitral valve prolapse Hypothyroidism Family history of Eketz-Resddvruc-Howao syndrome Family history of CAD Plan: Continue on current medication regime ,monitoring and symptomatic treatment. IV fluids discontinued. Encourage oral fluid intake. Maintain on Questran. Increase ambulation as tolerated. Discharge planning in progress for either later today or in a.m., pending patient's progress. The impression and plan of care has been dictated as directed. : I performed a history and examination of this patient, discussed the same with the dictator. I agree with the dictator's note ,documented as a scribe. Any additional findings or plans will be noted.
[2019-01-21] MEDS: PANTOPRAZOLE 40 MG/10 ML VIAL IVP SCH (08:06)
[2019-01-21] MEDS: CHOLESTYRAMINE (WITH SUGAR) 4 GM PACKET PO SCH (08:08)
[2019-01-21 08:31] VITALS: BP 143/69; PULSE 53; RESP 15; TEMP 99
--- NOTE | 2019-01-21 11:34 | P.DS ---
Providers Date of admission: 01/21/19 09:01 Expected date of discharge: 01/21/19 Attending physician: Parker Gonzalez Primary care physician: [facility] Course: Final Diagnoses: intractable nausea vomiting diarrhea, improved, suspect viral gastroenteritis. C. difficile ruled out out history mitral valve prolapse Hypothyroidism Family history of Gqorb-Mjowzctaq-Nkzsr syndrome Family history of CAD Hospital course:Chief Complaint: nausea vomiting diarrhea this is a 58-year-old femalewith history of mitral valve prolapse, hypothyroidism, takes propanolol for intermittent heart racing with the family history of CAD, son has WPW and multiple other medical issues, presented to the ER with complaints of nausea vomiting ,diarrhea and generalized weakness this started last night after eating leftover turkey which have been refrigerated since . denies fever or chills. denies abdominal pain.VSS.Received Phenergan, Zofran and IV fluid hydration in the ER. Nausea vomiting resolved, continues to have ongoing diarrhea.C. difficile ruled out out.denies chest pain, palpitations or shortness of breath.total bili 1.4, LFTs within normal limits. 01/20/2019 tolerating diet advancement to soft food with no nausea or vomiting. Questran initiated yesterday, and diarrhea significantly improved, reporting only 3 episodes today. Tested negative for C. difficile. Maintained on IV fluid hydration. Hemoglobin 10.9, WBC down to 2.3. Denies lightheadedness, dizziness or focal deficits. T-max 102.6. Significant clinical improvement. Patient is being discharged home in a stable condition with guarded prognosis. Advised patient to remain off work thru the weekend, patient continues to have low-grade fevers,leukopenic. EXAM: GENERAL: Alert and oriented 3, no acute distress CARDIOVASCULAR: S1, S2 regular. positive systolic murmur RESPIRATION: Breath sounds diminished in the bases. No rhonchi or crackles. No wheezing. ABDOMEN: Soft, nondistended, nontender .No guarding. no masses palpable.Bowel sounds heard. NERVOUS SYSTEM: No focal deficits. The impression and plan of care has been dictated as directed. : I performed a history and examination of this patient, discussed the same with the dictator. I agree with the dictator's note ,documented as a scribe. Any additional findings or plans will be noted. Patient Condition at Discharge: Stable Plan - Discharge Summary Discharge Rx Participant: Yes New Discharge Prescriptions: New Pantoprazole Sodium [Protonix] 40 mg PO DAILY #30 tablet. Cholestyramine (with Sugar) [Questran Packet] 4 gm PO TID@1000,1500,2100 PRN #30 packet PRN Reason: Diarrhea Continue Propranolol HCl [Inderal Xl] 80 mg PO DAILY@1130 Discharge Medication List Propranolol HCl [Inderal Xl] 80 mg PO DAILY@1130 01/19/19 [History] Pantoprazole Sodium [Protonix] 40 mg PO DAILY #30 tablet. 01/20/19 [Rx] Cholestyramine (with Sugar) [Questran Packet] 4 gm PO TID@1000,1500,2100 PRN #30 packet 01/21/19 [Rx] Follow up Appointment(s)/Referral(s): Parker Gonzalez Jr, DO [Primary Care Provider] - 01/28/19 9:15 am Ambulatory/Diagnostic Orders: Complete Blood Count w/diff [LAB.AMB] Time Frame: 3 Days, Location: None Selected Patient Instructions/Handouts: Gastroenteritis (DC) Discharge/Stand Alone Forms: Work/Release Restrictions Form Discharge Disposition: HOME SELF-CARE
== END 2019-01-21 10:12 | disposition home or self-care (01) | DRG 392 ==
LOC: EC 04:19 → 6PED 07:17 → 4SSUR 20:00 → OBSVTOIN 01-21 09:01
PROVIDERS: ADMIT Family Medicine; ATTEND Family Medicine
DX: A08.4 Viral intestinal infection, unspecified (principal); D72.819 Decreased white blood cell count, unspecified; E03.9 Hypothyroidism, unspecified; I34.1 Nonrheumatic mitral (valve) prolapse; Z79.899 Other long term (current) drug therapy; Z80.0 Family history of malignant neoplasm of digestive organs; Z82.49 Family history of ischemic heart disease and other diseases of the circulatory system
CPT/HCPCS: 36415; 74018; 80048; 80053; 81001; 82150; 83690; 85025; 85027; 87040; 87045; 87046; 87324; 96361; 96374; 96375; 96376; 99285

== ENCOUNTER → 2019-01-23 | Outpatient (CLI) | payer MEDICAID ==
[2019-01-23 11:50] LABS: Appearance,Urine Clear (Clear); Bilirubin,Urine Negative (Negative); Blood,Urine Trace (Negative); Color,Urine Yellow; Glucose,Urine (UA) Negative (Negative); Hyaline Casts,Urine 1 /lpf (0-2); Ketones,Urine Negative (Negative); Leukocyte Esterase,Urine Negative (Negative); Mucus,Urine Occasional /hpf; Nitrite,Urine Negative (Negative); Protein,Urine Negative (Negative); RBC,Urine 1 /hpf (0-5); Specific Gravity,Urine 1.019 (1.001-1.035); Urobilinogen,Urine <2.0 mg/dL (<2.0)
[2019-01-23 11:51] LABS: HCT 33.9 % (34.0-46.0); HGB 11.8 gm/dL (11.4-16.0); MCH 30.7 pg (25.0-35.0); MCHC 34.7 g/dL (31.0-37.0); MCV 88.5 fL (80.0-100.0); Mean Platelet Volume 8.7; Platelet Count 147 k/uL (150-450); RBC 3.83 m/uL (3.80-5.40); RDW 12.5 % (11.5-15.5); WBC 3.3 k/uL (3.8-10.6)
[2019-01-23 16:53] LABS: African American GFR (CKD) 117.3 (60.0-200.0); Anion Gap 7.8 mmol/L (4.00-12.00); BUN/Creat Ratio 18.33 Ratio (12.00-20.00); Carbon Dioxide 31.2 mmol/L (21.6-31.8); Non-African American GFR(CKD) 101.2 (60.0-200.0); Potassium 3.5 mmol/L (3.5-5.5)
== END | disposition home or self-care (01) ==
LOC: LABWHC1 10:35
PROVIDERS: ATTEND Nurse Practitioner
DX: K52.9 Noninfective gastroenteritis and colitis, unspecified (principal)
CPT/HCPCS: 36415; 80048; 81001; 85027

== ENCOUNTER 2022-05-09 05:37 | Emergency (ER) | payer MEDICAID, OTHER ==
--- NOTE | 2022-05-09 06:16 | ED ---
URI HPI - General Chief Complaint: Upper Respiratory Infection Stated Complaint: Cough Time Seen by Provider: 05/09/22 06:08 Source: patient, RN notes reviewed, old records reviewed Mode of arrival: ambulatory Limitations: no limitations - History of Present Illness Initial Comments: 62-year-old non-toxic appearing female sitting in chair at bedside in room 21, presents to the emergency room with complaints of cough and congestion for one week. Seen by primary care Dr Gonzalez's office 3 days ago and placed on amoxicillin for bronchitis. Patient states she continues to have no improvement in her cough. Denies any fevers. MD Complaint: cough, nasal congestion -: week(s) (1) Severity scale (1-10): 0 Consistency: constant Improves With: nothing Associated Symptoms: denies other symptoms Treatments Prior to Arrival: antibiotics (amoxicillin x3 days) - Related Data Home Medications Medication Instructions Recorded Confirmed Propranolol HCl [Inderal Xl] 80 mg PO DAILY@1130 01/19/19 01/19/19 Previous Rx's Medication Instructions Recorded Pantoprazole Sodium [Protonix] 40 mg PO DAILY #30 tablet. 01/20/19 Cholestyramine (with Sugar) 4 gm PO TID@1000,1500,2100 PRN #30 01/21/19 [Questran Packet] packet Albuterol Inhaler [Ventolin Hfa 1 - 2 puff INHALATION Q6H PRN #1 05/09/22 Inhaler] unit Allergies Allergy/AdvReac Type Severity Reaction Status Date / Time No Known Allergies Allergy Verified 01/19/19 08:06 Review of Systems ROS Statement: Those systems with pertinent positive or pertinent negative responses have been documented in the HPI. ROS Other: All systems not noted in ROS Statement are negative. Past Medical History Past Medical History: Mitral Valve Prolapse (MVP), Thyroid Disorder Additional Past Medical History / Comment(s): mitral valve prolapse History of Any Multi-Drug Resistant Organisms: None Reported Past Surgical History: No Surgical Hx Reported Past Anesthesia/Blood Transfusion Reactions: No Reported Reaction Past Psychological History: No Psychological Hx Reported Past Alcohol Use History: None Reported Past Drug Use History: None Reported - Past Family History Mother Family Medical History: Pulmonary Embolus Father Family Medical History: Cancer Additional Family Medical History / Comment(s): stomach,CAD General Exam Limitations: no limitations General appearance: alert, in no apparent distress Head exam: Present: atraumatic Eye exam: Absent: scleral icterus, conjunctival injection, periorbital swelling Respiratory exam: Present: normal lung sounds bilaterally. Absent: respiratory distress, wheezes, rales, rhonchi, stridor, accessory muscle use Cardiovascular Exam: Present: regular rate Neurological exam: Present: alert, oriented X3, normal gait Psychiatric exam: Present: normal affect, normal mood Skin exam: Present: warm, dry, normal color. Absent: cyanosis, diaphoretic, petechiae, pallor Course Vital Signs 05/09/22 05:40 Temperature 97.8 F Pulse Rate 75 Respiratory 16 Rate Blood Pressure 99/63 O2 Sat by Pulse 98 Oximetry Medical Decision Making - Medical Decision Making Chest x-ray interpreted by me shows no evidence of focal consolidation. Radiologist's interpretation no cardiopulmonary disease no change. Influenza, coronavirus an RSV swab negative. Patient offered a albuterol treatment and declined states it makes her feel jittery. She was directed to continue the antibiotics as prescribed by her primary care doctor and follow up with him within the week. Return to the emergency room with any new or concerning symptoms. Patient is agreeable to this plan of care. Case discussed with Dr. Sierra. Was pt. sent in by a medical professional or institution (, PA, NEPHROLOGIST, urgent care, hospital, or senior living...) When possible be specific @ -No Did you speak to anyone other than the patient for history (EMS, parent, family, police, friend...)? What history was obtained from this source @ -No Did you review nursing and triage notes (agree or disagree)? Why? @ -I reviewed and agree with nursing and triage notes Were old charts reviewed (outside hosp., previous admission, EMS record, old EKG, old radiological studies, urgent care reports/EKG's, senior living records)? Report findings @ -No old charts were reviewed Differential Diagnosis (chest pain, altered mental status, abdominal pain women, abdominal pain men, vaginal bleeding, weakness, fever, dyspnea, syncope, headache, dizziness, GI bleed, back pain, seizure, CVA, palpatations, mental health, musculoskeletal)? @ -Viral URI, pneumonia, congestive heart failure, asthma, COPD EKG interpreted by me (3pts min.). @ -n/a X-rays interpreted by me (1pt min.). @ -Yes as above CT interpreted by me (1pt min.). @ -None done U/S interpreted by me (1pt. min.). @ -None done What testing was considered but not performed or refused? (CT, X-rays, U/S, labs)? Why? @ -None What meds were considered but not given or refused? Why? @ -Duoneb treatment was offered and patient declined stating it makes her feel jittery Did you discuss the management of the patient with other professionals (professionals i.e. , PA, NEPHROLOGIST, lab, RT, psych nurse, psychologist social, advertising editor, teacher, structural engineering drafting officer, medical case worker)? Give summary @ -No Was smoking cessation discussed for >3mins.? @ -No Was critical care preformed (if so, how long)? @ -No Were there social determinants of health that impacted care today? How? (Homelessness, low income, unemployed, alcoholism, drug addiction, transportation, low edu. Level, literacy, decrease access to med. care, senior living, rehab)? @ -No Was there de-escalation of care discussed even if they declined (Discuss DNR or withdrawal of care, Hospice)? DNR status @ -No What co-morbidities impacted this encounter? (DM, HTN, Smoking, COPD, CAD, Cancer, CVA, ARF, Chemo, Hep., AIDS, mental health diagnosis, sleep apnea, morbid obesity)? @ -None Was patient admitted / discharged? Hospital course, mention meds given and route, prescriptions, significant lab abnormalities, going to OR and other pertinent info. @ -Discharged Undiagnosed new problem with uncertain prognosis? @ -No Drug Therapy requiring intensive monitoring for toxicity (Heparin, Nitro, Insulin, Cardizem)? @ -No Were any procedures done? @ -No Diagnosis/symptom? @ -Bronchitis, URI Acute, or Chronic, or Acute on Chronic? @ -Acute Uncomplicated (without systemic symptoms) or Complicated (systemic symptoms)? @ -Uncomplicated Side effects of treatment? @ -No Exacerbation, Progression, or Severe Exacerbation? @ -No Poses a threat to life or bodily function? How? (Chest pain, [place], [place], pneumonia, PE, COPD, DKA, ARF, appy, cholecystitis, CVA, Diverticulitis, Homicidal, Suicidal, threat to staff... and all critical care pts) @ -No - Lab Data Lab Results 05/09/22 Range/Units 06:17 Influenza Type A (PCR) Not Detected (Not Detectd) Influenza Type B (PCR) Not Detected (Not Detectd) RSV (PCR) Not Detected (Not Detectd) SARS-CoV-2 (PCR) Not Detected (Not Detectd) Disposition Clinical Impression: Bronchitis, Acute upper respiratory infection Disposition: HOME SELF-CARE Condition: Good Instructions (If sedation given, give patient instructions): Upper Respiratory Infection (ED) Additional Instructions: Increase your fluid intake. Use albuterol inhaler 1-2 puffs every 4-6 hours as needed for cough or difficulty in breathing. Follow-up with the primary care doctor this week. Prescriptions: Albuterol Inhaler [Ventolin Hfa Inhaler] 1 - 2 puff INHALATION Q6H PRN #1 unit PRN Reason: Wheezing Is patient prescribed a controlled substance at d/c from ED?: No Referrals: Parker Gonzalez Jr, [Primary Care Provider] - 1-2 days Time of Disposition: 07:25
[2022-05-09] MEDS ORDERED: DEXAMETHASONE SOD PHOSPHATE 10 MG/ML 1 ML VIAL IM STA (06:32)
--- NOTE | 2022-05-09 06:39 | XR ---
EXAMINATION TYPE: XR chest 2V DATE OF EXAM: 05/09/2022 COMPARISON: 08/10/2018 HISTORY: Cough TECHNIQUE: 2 views FINDINGS: Heart and mediastinum are normal. Lungs are clear. Diaphragm is normal. Bony thorax is inta ct. There is some minimal pectus excavatum chest deformity. No pleural effusion IMPRESSION: No cardiopulmonary disease. No change.
[2022-05-09] MEDS ORDERED: IPRATROPIUM-ALBUTEROL 3 ML NEB INHALATION STA (07:22)
[2022-05-09 07:43] VITALS: BP 106/49; PULSE 77; RESP 18; TEMP 97.7
== END 2022-05-09 07:35 | disposition home or self-care (01) ==
LOC: EC 05:37
DX: J40 Bronchitis, not specified as acute or chronic (principal); J06.9 Acute upper respiratory infection, unspecified; E07.9 Disorder of thyroid, unspecified; Z20.822 Contact with and (suspected) exposure to COVID-19
CPT/HCPCS: 87636; 71046; 99283; 96372; J1100

== ENCOUNTER 2022-09-27 11:22 | Emergency (ER) | payer OTHER ==
[2022-09-27 11:33] VITALS: BP 120/77; PULSE 82; RESP 20; TEMP 98.7
--- NOTE | 2022-09-27 12:04 | ED ---
General Adult HPI - General Chief complaint: ENT Stated complaint: Sinus infection Time Seen by Provider: 09/27/22 11:38 Source: patient, RN notes reviewed Mode of arrival: ambulatory Limitations: no limitations - History of Present Illness Initial comments: 62-year-old female presents to the emergency department with a chief complaint of congestion. Patient reports coming symptoms of cough with light green sputum, a full congestion, nasal drainage. She denies any known fevers, chills, dyspnea, shortness of breath sore throat. Patient denies any history of COPD or asthma. Denies recent sick contact. Denies chest pain, nausea, vomiting, abdominal pain, chest pain, shortness of breath - Related Data Home Medications Medication Instructions Recorded Confirmed Propranolol HCl [Inderal Xl] 80 mg PO DAILY@1130 01/19/19 01/19/19 Previous Rx's Medication Instructions Recorded Pantoprazole Sodium [Protonix] 40 mg PO DAILY #30 tablet. 01/20/19 Cholestyramine (with Sugar) 4 gm PO TID@1000,1500,2100 PRN #30 01/21/19 [Questran Packet] packet Albuterol Inhaler [Ventolin Hfa 1 - 2 puff INHALATION Q6H PRN #1 05/09/22 Inhaler] unit Azithromycin [Zithromax Z Pack] 1 tab PO DIRECTED #6 tab 09/27/22 predniSONE 50 mg PO DAILY #5 tab 09/27/22 Allergies Allergy/AdvReac Type Severity Reaction Status Date / Time No Known Allergies Allergy Verified 09/27/22 11:32 Review of Systems ROS Statement: Those systems with pertinent positive or pertinent negative responses have been documented in the HPI. ROS Other: All systems not noted in ROS Statement are negative. Past Medical History Past Medical History: Mitral Valve Prolapse (MVP), Thyroid Disorder Additional Past Medical History / Comment(s): mitral valve prolapse History of Any Multi-Drug Resistant Organisms: None Reported Past Surgical History: No Surgical Hx Reported Past Anesthesia/Blood Transfusion Reactions: No Reported Reaction Past Psychological History: No Psychological Hx Reported Smoking Status: Never smoker Past Alcohol Use History: None Reported Past Drug Use History: None Reported - Past Family History Mother Family Medical History: Pulmonary Embolus Father Family Medical History: Cancer Additional Family Medical History / Comment(s): stomach,CAD General Exam - General Exam Comments Initial Comments: General: Alert, in no acute distress Head: atraumatic normocephalic. Eyes PERRL, EOMI intact, mucous membranes moist Respiratory: Lungs clear to auscultation bilaterally Cardiovascular: Heart rate regular rate and rhythm Abdominal: Soft without guarding or rebound Extremities: Normal inspection with full range of motion and normal capillary refill Neuroogic: alert and oriented 3, CN II-XII intact, able to ambulate with steady gait Skin: warm dry and intact with normal color Limitations: no limitations Course Vital Signs 09/27/22 11:29 Temperature 98.7 F Pulse Rate 82 Respiratory 20 Rate Blood Pressure 120/77 O2 Sat by Pulse 96 Oximetry Medical Decision Making - Medical Decision Making Was pt. sent in by a medical professional or institution (, PA, DEVELOPER DESIGNER, urgent care, hospital, or [facility]...) When possible be specific @ -[No] Did you speak to anyone other than the patient for history (EMS, parent, family, police, friend...)? What history was obtained from this source @ -[No] Did you review nursing and triage notes (agree or disagree)? Why? @ -[I reviewed and agree with nursing and triage notes] Were old charts reviewed (outside hosp., previous admission, EMS record, old EKG, old radiological studies, urgent care reports/EKG's, [facility] records)? Report findings @ -[No old charts were reviewed] Differential Diagnosis (chest pain, altered mental status, abdominal pain women, abdominal pain men, vaginal bleeding, weakness, fever, dyspnea, syncope, headache, dizziness, GI bleed, back pain, seizure, CVA, palpatations, mental health, musculoskeletal)? @ -[not applicable] EKG interpreted by me (3pts min.). @ -[As above] X-rays interpreted by me (1pt min.). @ -X-rays were considered however patient is denying any known fevers or shortness of breath. CT interpreted by me (1pt min.). @ -[None done] U/S interpreted by me (1pt. min.). @ -[None done] What testing was considered but not performed or refused? (CT, X-rays, U/S, labs)? Why? @ -[None] What meds were considered but not given or refused? Why? @ -[None] Did you discuss the management of the patient with other professionals (professionals i.e. , PA, DEVELOPER DESIGNER, lab, RT, psych nurse, web content & social media manager, glue mounter operator, teacher, public health officer, case planner)? Give summary @ -[No] Was smoking cessation discussed for >3mins.? @ -[No] Was critical care preformed (if so, how long)? @ -[No] Were there social determinants of health that impacted care today? How? (Homelessness, low income, unemployed, alcoholism, drug addiction, transportation, low edu. Level, literacy, decrease access to med. care, penitentiary, rehab)? @ -[No] Was there de-escalation of care discussed even if they declined (Discuss DNR or withdrawal of care, Hospice)? DNR status @ -[No] What co-morbidities impacted this encounter? (DM, HTN, Smoking, COPD, CAD, Cancer, CVA, ARF, Chemo, Hep., AIDS, mental health diagnosis, sleep apnea, morbid obesity)? @ -[None] Was patient admitted / discharged? Hospital course, mention meds given and route, prescriptions, significant lab abnormalities, going to OR and other pertinent info. @ -[Discharged. This is a pleasant 62-year-old female who presents to the emergency department with a chief complaint of congestion. Patient had a thorough history and physical exam performed on the ED. Physical exam reveals a a-febrile heart rate regular rate and rhythm, lungs clear to auscultation all lung macario, abdomen soft nontender. Patient is nontoxic and non-ill appearing. Patient was offered x-rays however she declined and she believes that she only has a sinus infection. Patient was provided a prescription for Z-Sav and prednisone. Strict return precautions were discussed at length. Patient be discharged home in stable condition. Case discussed with XENA Hurt who agrees with plan of care Undiagnosed new problem with uncertain prognosis? @ -[No] Drug Therapy requiring intensive monitoring for toxicity (Heparin, Nitro, Insul in, Cardizem)? @ -[No] Were any procedures done? @ -[No] Diagnosis/symptom? @ -Congestion Vs. Acute Sinusitis Acute, or Chronic, or Acute on Chronic? @ -Acute Uncomplicated (without systemic symptoms) or Complicated (systemic symptoms)? @ -Uncomplicated Side effects of treatment? @ -[No] Exacerbation, Progression, or Severe Exacerbation? @ -[No] Poses a threat to life or bodily function? How? (Chest pain, USA, MS, pneumonia, PE, COPD, DKA, ARF, appy, cholecystitis, CVA, Diverticulitis, Homicidal, Suicidal, threat to staff... and all critical care pts) @ -Low llikelihood Disposition Clinical Impression: Nasal congestion Disposition: HOME SELF-CARE Condition: Stable Additional Instructions: Please return to the nearest emergency department if worse shortness of breath, fever, cough developed Prescriptions: predniSONE 50 mg PO DAILY #5 tab Azithromycin [Zithromax Z Pack] 1 tab PO DIRECTED #6 tab Is patient prescribed a controlled substance at d/c from ED?: No Referrals: Parker Gonzalez Jr, DO [Primary Care Provider] - 1-2 days Time of Disposition: 12:03
== END 2022-09-27 12:11 | disposition home or self-care (01) ==
LOC: EC 11:22
DX: R09.81 Nasal congestion (principal)
CPT/HCPCS: 99283

== ENCOUNTER 2023-04-24 08:43 | Emergency (ER) | payer OTHER ==
--- NOTE | 2023-04-24 09:19 | ED ---
Nausea/Vomiting/Diarrhea HPI - General Chief complaint: Nausea/Vomiting/Diarrhea Stated complaint: Cough with flem Time Seen by Provider: 04/24/23 08:58 Source: patient, RN notes reviewed Mode of arrival: ambulatory Limitations: no limitations - History of Present Illness Initial comments: This is a 63-year-old female who presents to the emergency department for nausea, vomiting, and diarrhea. She has had 2 episodes of vomiting this morning. Symptoms largely started yesterday with coughing, congestion, and shortness of breath. Reports the cough as being productive. States that she gets bronchitis every year and is usually treated with prednisone and a Z-Sav, which is often effective. Denies any history of asthma or COPD. Denies any sick contacts. Also denies any fevers, but has had chills. MD complaint: nausea, vomiting, diarrhea - Related Data Home Medications Medication Instructions Recorded Confirmed Propranolol HCl [Inderal Xl] 80 mg PO DAILY@1130 01/19/19 01/19/19 Previous Rx's Medication Instructions Recorded Pantoprazole Sodium [Protonix] 40 mg PO DAILY #30 tablet. 01/20/19 Cholestyramine (with Sugar) 4 gm PO TID@1000,1500,2100 PRN #30 01/21/19 [Questran Packet] packet Albuterol Inhaler [Ventolin Hfa 1 - 2 puff INHALATION Q6H PRN #1 05/09/22 Inhaler] unit Azithromycin [Zithromax Z Pack] 1 tab PO DIRECTED #6 tab 09/27/22 predniSONE 50 mg PO DAILY #5 tab 09/27/22 Albuterol Sulfate [Albuterol 1 puff PO Q4-6H PRN #8.5 gm 04/24/23 Sulfate Hfa] Benzonatate [Tessalon Perle] 200 mg PO TID PRN #30 capsule 04/24/23 Ondansetron Odt [Zofran Odt] 4 mg PO Q8HR PRN #20 tab 04/24/23 Oseltamivir [Tamiflu] 75 mg PO Q12HR 5 Days #10 cap 04/24/23 Allergies Allergy/AdvReac Type Severity Reaction Status Date / Time No Known Allergies Allergy Verified 04/24/23 08:56 Review of Systems ROS Statement: Those systems with pertinent positive or pertinent negative responses have been documented in the HPI. ROS Other: All systems not noted in ROS Statement are negative. Past Medical History Past Medical History: Mitral Valve Prolapse (MVP), Thyroid Disorder Additional Past Medical History / Comment(s): mitral valve prolapse History of Any Multi-Drug Resistant Organisms: None Reported Past Surgical History: No Surgical Hx Reported Past Anesthesia/Blood Transfusion Reactions: No Reported Reaction Past Psychological History: No Psychological Hx Reported Smoking Status: Never smoker Past Alcohol Use History: None Reported Past Drug Use History: None Reported - Past Family History Mother Family Medical History: Pulmonary Embolus Father Family Medical History: Cancer Additional Family Medical History / Comment(s): stomach,CAD General Exam Limitations: no limitations General appearance: alert, in no apparent distress Head exam: Present: atraumatic, normocephalic, normal inspection Respiratory exam: Present: normal lung sounds bilaterally. Absent: respiratory distress, wheezes, rales, rhonchi, stridor Cardiovascular Exam: Present: regular rate, normal rhythm, normal heart sounds. Absent: systolic murmur, diastolic murmur, rubs, gallop, clicks Neurological exam: Present: alert, oriented X3, CN II-XII intact Psychiatric exam: Present: normal affect, normal mood Skin exam: Present: warm, dry, intact, normal color. Absent: rash Course Vital Signs 04/24/23 04/24/23 04/24/23 08:54 09:55 12:16 Temperature 99.7 F H 98.3 F Pulse Rate 86 80 64 Respiratory 16 20 20 Rate Blood Pressure 116/71 122/62 113/53 O2 Sat by Pulse 94 L 93 L 94 L Oximetry Medical Decision Making - Medical Decision Making This is a 63-year-old female who presents to the emergency department for nausea, vomiting, diarrhea, coughing, and congestion. Was pt. sent in by a medical professional or institution? @ -No Did you speak to anyone other than the patient for history? @ -No Did you review nursing and triage notes? @ -Yes, and I agree, it is accurate with regards to the patient's symptoms. Were old charts reviewed? @ -No Differential Diagnosis? @ -Differential Cough: Influenza, Covid, RSV, croup, allergic rhinitis, GERD, pneumonia, bronchitis, COPD, viral pharyngitis, streptococcal pharyngitis, this is not meant to be an all-inclusive list. EKG interpreted by me (3pts min.)? @ -Not obtained X-rays interpreted by me (1pt min.)? @ -Chest x-ray obtained, my interpretation identifies no localized consolidations or infiltrates. CT interpreted by me (1pt min.)? @ -Not obtained U/S interpreted by me (1pt. min.)? @ -Not obtained What testing was considered but not performed? (CT, X-rays, U/S, labs)? Why? @ -None What meds were considered but not given? Why? @ -I offered a breathing treatment and cough medication, however the patient declined. Did you discuss the management of the patient with other professionals? @ -No Did you reconcile home meds? @ -No Was smoking cessation discussed for >3mins.? @ -No Was critical care preformed (if so, how long)? @ -No Were there social determinants of health that impacted care today? How? (Homelessness, low income, unemployed, alcoholism, drug addiction, trans portation, low edu. Level, literacy, decrease access to med. care, [facility], rehab)? @ -No Was there de-escalation of care discussed even if they declined? (Discuss DNR or withdrawal of care, Hospice)? @ -No What co-morbidities impacted this encounter? (DM, HTN, Smoking, COPD, CAD, Cancer, CVA, Hep., AIDS, mental health diagnosis, sleep apnea, morbid obesity)? @ -None Was patient admitted / discharged? @ -Discharged. Lab work demonstrates signs of mild dehydration, and it was otherwise unremarkable. Patient positive for influenza A. Chest x-ray reveals no acute process. Symptoms well-controlled in the emergency department. Prescription for Tamiflu, Tessalon Perles, Zofran, and albuterol inhaler prov ided with dosing instructions reviewed. Advise getting plenty of rest and remaining well-hydrated. Patient discharged home in stable condition. Undiagnosed new problem with uncertain prognosis? @ -None Drug Therapy requiring intensive monitoring for toxicity (Heparin, Nitro, Insulin, Cardizem)? @ -None Were any procedures done? @ -None Diagnosis/symptom? @ -Influenza A, nausea/vomiting Acute, or Chronic, or Acute on Chronic? @ -Acute Uncomplicated (without systemic symptoms) or Complicated (systemic symptoms)? @ -Uncomplicated Side effects of treatment? @ -None Exacerbation, Progression, or Severe Exacerbation] @ -Not applicable Poses a threat to life or bodily function? @ -No Return precautions reviewed in depth, the patient is instructed to return to the emergency department with any new, worsening, or concerning symptoms. Patient verbalized understanding. This case was discussed in detail with the attending ED physician, Dr. Sierra. Presentation, findings, and treatment plan discussed in detail as well. - Lab Data Result diagrams: 04/24/23 09:43 04/24/23 09:43 Lab Results 04/24/23 04/24/23 04/24/23 Range/Units 09:43 09:43 09:43 WBC 4.6 (3.8-10.6) k/uL RBC 4.29 (3.80-5.40) m/uL Hgb 13.3 (11.4-16.0) gm/dL Hct 38.3 (34.0-46.0) % MCV 89.3 (80.0-100.0) fL MCH 30.9 (25.0-35.0) pg MCHC 34.6 (31.0-37.0) g/dL RDW 13.0 (11.5-15.5) % Plt Count 154 (150-450) k/uL MPV 8.8 Neutrophils % 75 % Lymphocytes % 9 % Monocytes % 11 % Eosinophils % 2 % Basophils % 1 % Neutrophils # 3.4 (1.3-7.7) k/uL Lymphocytes # 0.4 L (1.0-4.8) k/uL Monocytes # 0.5 (0-1.0) k/uL Eosinophils # 0.1 (0-0.7) k/uL Basophils # 0.0 (0-0.2) k/uL Sodium 137 (137-145) mmol/L Potassium 4.2 (3.5-5.1) mmol/L Chloride 100 (98-107) mmol/L Carbon Dioxide 30 (22-30) mmol/L Anion Gap 7 mmol/L BUN 23 H (7-17) mg/dL Creatinine 0.80 (0.52-1.04) mg/dL Est GFR (CKD-EPI)AfAm >90 (>60 ml/min/1.73 sqM) Est GFR (CKD-EPI)NonAf 80 (>60 ml/min/1.73 sqM) Glucose 108 H (74-99) mg/dL Calcium 9.2 (8.4-10.2) mg/dL Magnesium 1.9 (1.6-2.3) mg/dL Total Bilirubin 1.4 H (0.2-1.3) mg/dL AST 27 (14-36) U/L ALT 19 (4-34) U/L Alkaline Phosphatase 71 (38-126) U/L Total Protein 7.9 (6.3-8.2) g/dL Albumin 4.6 (3.5-5.0) g/dL Influenza Type A (PCR) Detected A (Not Detectd) Influenza Type B (PCR) Not Detected (Not Detectd) RSV (PCR) Not Detected (Not Detectd) SARS-CoV-2 (PCR) Not Detected (Not Detectd) - Radiology Data Radiology results: report reviewed, image reviewed Disposition Clinical Impression: Influenza A, Nausea & vomiting Disposition: HOME SELF-CARE Instructions (If sedation given, give patient instructions): Influenza (ED), Acute Nausea and Vomiting (ED), Acute Diarrhea (ED) Additional Instructions: Return to the emergency department with any new, worsening, or concerning symptoms. Take the Tamiflu twice daily for 5 days. You can take the Tessalon Perles up to 3 times daily for the cough. Use the albuterol inhaler every 4-6 hours as needed. Take the Zofran up to every 8 hours as needed for nausea and vomiting. You can use [id number] Imodium as needed for diarrhea. Make sure you get plenty of rest and remain well-hydrated. Follow up with your primary care provider in 1-2 days. Prescriptions: Albuterol Sulfate [Albuterol Sulfate Hfa] 1 puff PO Q4-6H PRN #8.5 gm PRN Reason: Shortness Of Breath Oseltamivir [Tamiflu] 75 mg PO Q12HR 5 Days #10 cap Benzonatate [Tessalon Perle] 200 mg PO TID PRN #30 capsule PRN Reason: Cough Ondansetron Odt [Zofran Odt] 4 mg PO Q8HR PRN #20 tab PRN Reason: Nausea And Vomiting Is patient prescribed a controlled substance at d/c from ED?: No Referrals: Parker Gonzalez Jr, [Primary Care Provider] - 1-2 days Time of Disposition: 11:01
[2023-04-24] MEDS: ACETAMINOPHEN TAB 500 MG TAB PO STA (09:55)
[2023-04-24] MEDS: SODIUM CHLORIDE 0.9% 1,000 ML IV STA (09:57)
[2023-04-24] MEDS: ONDANSETRON 4 MG/2 ML VIAL IVP STA (10:00)
[2023-04-24 10:18] LABS: ALT 19 U/L (4-34); AST 27 U/L (14-36); African American GFR (CKD) >90 (>60 ml/min/1.73 sqM); Albumin 4.6 g/dL (3.5-5.0); Alkaline Phosphatase 71 U/L (38-126); Anion Gap 7 mmol/L; Blood Urea Nitrogen 23 mg/dL (7-17); Calcium 9.2 mg/dL (8.4-10.2); Carbon Dioxide 30 mmol/L (22-30); Chloride 100 mmol/L (98-107); Glucose 108 mg/dL (74-99); Magnesium 1.9 mg/dL (1.6-2.3); Non-African American GFR(CKD) 80 (>60 ml/min/1.73 sqM); Potassium 4.2 mmol/L (3.5-5.1); Sodium 137 mmol/L (137-145); Total Bilirubin 1.4 mg/dL (0.2-1.3); Total Protein 7.9 g/dL (6.3-8.2)
[2023-04-24 10:22] LABS: Basophils % (A) 1 %; Eosinophils # (A) 0.1 k/uL (0-0.7); Eosinophils % (A) 2 %; HCT 38.3 % (34.0-46.0); HGB 13.3 gm/dL (11.4-16.0); Lymphocytes # (A) 0.4 k/uL (1.0-4.8); Lymphocytes % (A) 9 %; MCH 30.9 pg (25.0-35.0); MCHC 34.6 g/dL (31.0-37.0); MCV 89.3 fL (80.0-100.0); Mean Platelet Volume 8.8; Monocytes # (A) 0.5 k/uL (0-1.0); Monocytes % (A) 11 %; Neutrophils # (A) 3.4 k/uL (1.3-7.7); Neutrophils % (A) 75 %; Platelet Count 154 k/uL (150-450); RBC 4.29 m/uL (3.80-5.40); WBC 4.6 k/uL (3.8-10.6)
[2023-04-24 10:28] VITALS: RESP 20
--- NOTE | 2023-04-24 10:52 | XR ---
EXAMINATION TYPE: XR chest 2V DATE OF EXAM: 04/24/2023 COMPARISON: 05/09/2022 HISTORY: 63-year-old female difficulty in breathing, cough TECHNIQUE: PA and lateral views FINDINGS: Heart normal size. Aorta and pulmonary vasculature within normal limits. Mild pectus excavatum. No co nsolidation or pleural effusion. IMPRESSION: No acute cardiopulmonary process.
[2023-04-24] MEDS: DEXAMETHASONE SOD PHOSPHATE 10 MG/ML 1 ML VIAL IVP STA (12:09)
[2023-04-24 12:47] VITALS: BP 113/53; PULSE 64; TEMP 98.3
== END 2023-04-24 12:16 | disposition home or self-care (01) ==
LOC: EC 08:43
DX: J10.1 Influenza due to other identified influenza virus with other respiratory manifestations (principal); E86.0 Dehydration; Z20.822 Contact with and (suspected) exposure to COVID-19
CPT/HCPCS: 36415; 80053; 83735; 85025; 87636; 71046; 99284; 96374; 96375; J1100; J2405

== ENCOUNTER 2023-08-18 18:22 | Emergency (ER) | payer OTHER ==
--- NOTE | 2023-08-18 18:35 | ED ---
URI HPI - General Chief Complaint: Upper Respiratory Infection Stated Complaint: loss of voice Time Seen by Provider: 08/18/23 18:35 Source: patient, RN notes reviewed Mode of arrival: ambulatory Limitations: no limitations - History of Present Illness Initial Comments: This is a 63-year-old female with a past medical history of seasonal allergies presents emergency department chief complaint of a productive cough and voice hoarseness over the past 3 days. Patient states that she woke up this morning and noticed that her voice is very hoarse. She is endorsing mild congestion and temporal pain that is similar to when she has had a sinus infection in the past. Denies fevers, chills, rhinorrhea, abdominal pain, nausea, vomiting, dyspnea, difficulty breathing. States that she takes Flonase and Zyrtec daily. Denies history of COPD or asthma. - Related Data Home Medications Medication Instructions Recorded Confirmed Propranolol HCl [Inderal Xl] 80 mg PO DAILY@1130 01/19/19 01/19/19 Previous Rx's Medication Instructions Recorded Pantoprazole Sodium [Protonix] 40 mg PO DAILY #30 tablet. 01/20/19 Cholestyramine (with Sugar) 4 gm PO TID@1000,1500,2100 PRN #30 01/21/19 [Questran Packet] packet Albuterol Inhaler [Ventolin Hfa 1 - 2 puff INHALATION Q6H PRN #1 05/09/22 Inhaler] unit Azithromycin [Zithromax Z Pack] 1 tab PO DIRECTED #6 tab 09/27/22 predniSONE 50 mg PO DAILY #5 tab 09/27/22 Albuterol Sulfate [Albuterol 1 puff PO Q4-6H PRN #8.5 gm 04/24/23 Sulfate Hfa] Benzonatate [Tessalon Perle] 200 mg PO TID PRN #30 capsule 04/24/23 Ondansetron Odt [Zofran Odt] 4 mg PO Q8HR PRN #20 tab 04/24/23 Oseltamivir [Tamiflu] 75 mg PO Q12HR 5 Days #10 cap 04/24/23 Benzonatate [Tessalon Perles] 100 mg PO TID PRN #15 capsule 08/18/23 Allergies Allergy/AdvReac Type Severity Reaction Status Date / Time No Known Allergies Allergy Verified 08/18/23 18:31 Review of Systems ROS Statement: Those systems with pertinent positive or pertinent negative responses have been documented in the HPI. ROS Other: All systems not noted in ROS Statement are negative. Past Medical History Past Medical History: Mitral Valve Prolapse (MVP), Thyroid Disorder Additional Past Medical History / Comment(s): mitral valve prolapse History of Any Multi-Drug Resistant Organisms: None Reported Past Surgical History: No Surgical Hx Reported Past Anesthesia/Blood Transfusion Reactions: No Reported Reaction Past Psychological History: No Psychological Hx Reported Smoking Status: Never smoker Past Alcohol Use History: None Reported Past Drug Use History: None Reported - Past Family History Mother Family Medical History: Pulmonary Embolus Father Family Medical History: Cancer Additional Family Medical History / Comment(s): stomach,CAD General Exam Limitations: no limitations General appearance: alert, in no apparent distress Head exam: Present: atraumatic, normocephalic, normal inspection Eye exam: Present: normal appearance, PERRL, EOMI. Absent: scleral icterus, conjunctival injection, periorbital swelling ENT exam: Present: normal exam, mucous membranes moist Neck exam: Present: normal inspection. Absent: tenderness, meningismus, lymphadenopathy Respiratory exam: Present: normal lung sounds bilaterally. Absent: respiratory distress, wheezes, rales, rhonchi, stridor Cardiovascular Exam: Present: regular rate, normal rhythm, normal heart sounds. Absent: systolic murmur, diastolic murmur, rubs, gallop, clicks GI/Abdominal exam: Present: soft, normal bowel sounds. Absent: distended, tenderness, guarding, rebound, rigid Extremities exam: Present: normal inspection, full ROM, normal capillary refill. Absent: tenderness, pedal edema, joint swelling, calf tenderness Back exam: Present: normal inspection Neurological exam: Present: alert, oriented X3, CN II-XII intact Course Vital Signs 08/18/23 08/18/23 18:27 20:53 Temperature 97.7 F 98.4 F Pulse Rate 60 56 L Respiratory 18 19 Rate Blood Pressure 124/56 149/77 O2 Sat by Pulse 96 98 Oximetry Medical Decision Making - Medical Decision Making Was pt. sent in by a medical professional or institution (, PA, INSOLE DEPARTMENT WORKER, urgent care, hospital, or fpc...) When possible be specific @ -No Did you speak to anyone other than the patient for history (EMS, parent, family, police, friend...)? What history was obtained from this source @ -No Did you review nursing and triage notes (agree or disagree)? Why? @ -I reviewed and agree with nursing and triage notes Were old charts reviewed (outside hosp., previous admission, EMS record, old EKG, old radiological studies, urgent care reports/EKG's, fpc records)? Report findings @ -No old charts were reviewed Differential Diagnosis (chest pain, altered mental status, abdominal pain women, abdominal pain men, vaginal bleeding, weakness, fever, dyspnea, syncope, headache, dizziness, GI bleed, back pain, seizure, CVA, palpatations, mental health, musculoskeletal)? @ -COVID 19, RSV, influenza, pneumonia, acute bronchitis, URI, this list is not all inclusive EKG interpreted by me (3pts min.). @ -None X-rays interpreted by me (1pt min.). @ -chest X-ray and x-ray of the soft tissue neck no acute cardiopulmonary process or deficits noted. CT interpreted by me (1pt min.). @ -None done U/S interpreted by me (1pt. min.). @ -None done What testing was considered but not performed or refused? (CT, X-rays, U/S, labs)? Why? @ -None What meds were considered but not given or refused? Why? @ -None Did you discuss the management of the patient with other professionals (professionals i.e. , PA, INSOLE DEPARTMENT WORKER, lab, RT, psych nurse, psychotherapist social worker, lard maker, teacher, electorate officer, case resource manager)? Give summary @ -No Was smoking cessation discussed for >3mins.? @ -No Was critical care preformed (if so, how long)? @ -No Were there social determinants of health that impacted care today? How? (Homelessness, low income, unemployed, alcoholism, drug addiction, transportation, low edu. Level, literacy, decrease access to med. care, [place] [facility], rehab)? @ -No Was there de-escalation of care discussed even if they declined (Discuss DNR or withdrawal of care, Hospice)? DNR status @ -No What co-morbidities impacted this encounter? (DM, HTN, Smoking, COPD, CAD, Cancer, CVA, ARF, Chemo, Hep., AIDS, mental health diagnosis, sleep apnea, morbid obesity)? @ -None Was patient admitted / discharged? Hospital course, mention meds given and route, prescriptions, significant lab abnormalities, going to OR and other pertinent info. @ -63-year-old female with productive cough and loss of voice. On examination, his posterior oropharynx shows no signs of erythema or cobblestoning. Additionally lungs are equal and clear bilaterally. Patient will be evaluated via chest x-ray, x-ray of the soft tissue neck and Cepheid to rule out possible infection. She will be provided with a dose of steroid in the emergency department due to hoarseness of voice. Patient's vitals are stable upon arrival and there is no signs of respiratory distress or hypoxia. Vitals are negative, she is negative for COVID, flu, RSV. Discussed symptomatic treatment at home including cycling Tylenol and Motrin and increasing oral rehydration. Recommend the patient continue to use allergy medications including Zyrtec and Flonase. She will be sent a prescription for Tessalon Perles as needed if cough worsens. All questions answered at bedside and strict return parameters discussed with patient she is verbalized understanding. Case discussed with Dr. Hewitt Undiagnosed new problem with uncertain prognosis? @ -No Drug Therapy requiring intensive monitoring for toxicity (Heparin, Nitro, Insulin, Cardizem)? @ -No Were any procedures done? @ -No Diagnosis/symptom? @ -productive cough, laryngitis Acute, or Chronic, or Acute on Chronic? @ -acute Uncomplicated (without systemic symptoms) or Complicated (systemic symptoms)? @ -uncomplicated Side effects of treatment? @ -No Exacerbation, Progression, or Severe Exacerbation? @ -No Poses a threat to life or bodily function? How? (Chest pain, [place], [place], pneumonia, PE, COPD, DKA, ARF, appy, cholecystitis, CVA, Diverticulitis, Homicidal, Suicidal, threat to staff... and all critical care pts) @ -No - Lab Data Lab Results 08/18/23 Range/Units 18:30 Influenza Type A (PCR) Not Detected (Not Detectd) Influenza Type B (PCR) Not Detected (Not Detectd) RSV (PCR) Not Detected (Not Detectd) SARS-CoV-2 (PCR) Not Detected (Not Detectd) Disposition Clinical Impression: Laryngitis, Productive cough Disposition: HOME SELF-CARE Condition: Good Instructions (If sedation given, give patient instructions): Pharyngitis (ED) Prescriptions: Benzonatate [Tessalon Perles] 100 mg PO TID PRN #15 capsule PRN Reason: Cough Is patient prescribed a controlled substance at d/c from ED?: No Referrals: Parker Gonzalez Jr, [Primary Care Provider] - 1-2 days
[2023-08-18] MEDS: methylPREDNISolone SOD SUCCI 125 MG/2 ML VIAL IM ONE (18:51)
[2023-08-18] MEDS: KETOROLAC 15 MG/ML 1 ML VIAL IM STA (18:51)
--- NOTE | 2023-08-18 19:29 | XR ---
EXAMINATION TYPE: XR soft tissue neck DATE OF EXAM: 08/18/2023 7:27 PM CLINICAL INDICATION:Female, 63 years old with history of horse voice; [facility] COMPARISON: None TECHNIQUE: The soft tissues of the neck were imaged in frontal and lateral views. FINDINGS: The prevertebral soft tissues are unremarkable. There is no evidence of mass effect or trac heal deviation. No acute osseous abnormality demonstrated. No evidence of subglottic narrowing. IMPRESSION: No significant abnormality identified within the soft tissues of the neck.
--- NOTE | 2023-08-18 19:31 | XR ---
EXAMINATION TYPE: XR chest 2V DATE OF EXAM: 08/18/2023 7:27 PM CLINICAL INDICATION:Female, 63 years old with history of horse voice, productive cough; [facility] COMPARISON: Chest radiographs from 04/24/2023. TECHNIQUE: XR chest 2V Frontal and lateral views of the chest. FINDINGS: Lungs/Pleura: There is no evidence of pleural effusion, focal consolidation, or pneumothorax. Pulmonary vascularity: Unremarkable. Heart/mediastinum: Cardiomediastinal silhouette is unremarkable. Musculoskeletal: No acute osseous pathology. IMPRESSION: No acute cardiopulmonary disease/process.
[2023-08-18 20:54] VITALS: BP 149/77; PULSE 56; RESP 19; TEMP 98.4
== END 2023-08-18 20:53 | disposition home or self-care (01) ==
LOC: EC 18:22
DX: J04.0 Acute laryngitis (principal)
CPT/HCPCS: 87636; 70360; 71046; 99283; 96372; J2919